=== PATIENT | female | born 1965 | race Caucasian/White ===

== ENCOUNTER 2017-08-10 06:31 | Observation (INO) | payer OTHER, SELFPAY ==
--- NOTE | 2017-07-30 15:29 | EKG12_ITS ---
Test Reason : PRE OP Blood Pressure : / mmHG Vent. Rate : 091 BPM Atrial Rate : 091 BPM P-R Int : 158 ms QRS Dur : 096 ms QT Int : 376 ms P-R-T Axes : 061 -12 007 degrees QTc Int : 462 ms Normal sinus rhythm Low voltage QRS (pre cordial leads) Nonspecific ST and T wave abnormality Confirmed by JT GUERRERO, BILLY ([id number]), photograph editor CHELSI GALVIN ([id number]) on 08/01/2017 1:04:55 PM Referred By: Jonah Carson Confirmed By:BILLY WATERS MD
[2017-07-30 16:14] LABS: Hemoglobin A1c 7.8 % (4.2-6.3)
[2017-07-30 16:47] LABS: Anion Gap 8 (5-15); BUN 11 mg/dL (7-18); BUN/Creat Ratio 11.5 RATIO (10-20); Chloride 103 mmol/L (98-107); Creatinine, Serum 0.96 mg/dL (0.55-1.02); EST Glomerular Filtration Rate 66 mL/min (>60); Est Glom Filt Rate - Afr Amer 79 mL/min (>60); Glucose 153 mg/dL (74-106); Potassium 3.8 mmol/L (3.5-5.1); Sodium Level 137 mmol/L (136-145); Thyroid Stim Hormone (TSH) 0.86 uIU/mL (0.358-3.74)
--- NOTE | 2017-08-08 23:23 | HP.PCM_ITS ---
History and Physical Date of Admission: 08/09/17 HISTORY OF PRESENT ILLNESS 52-year-old woman presents with bilateral macromastia as well as associated painful symptomatology of neck pain, thoracic back pain, bilateral shoulder pain from shoulder grooving from the way of her breasts on her bra strap, and inframammary intertrigo which he uses diaper rash ointment for relief. She had a mammogram in March, which was normal. She does have a family history of breast cancer. She denies any trauma to the breast. Denies any nipple discharge. She has not seen any chiropractor to help with her back discomfort. Medical approval from the insurance company has been obtained. PAST MEDICAL HISTORY Diabetes High BP Vitamin Deficiency Thyroid dx Arthritis Fibroids Hyperlipidemia Gastroesophageal reflux disease Anemia, iron deficiency Increased cholesterol Degenerative disc disease-cervical Degenerative disc disease-thoracic Inframammary intertrigo Bilateral shoulder pain from shoulder grooving from the weight of her breasts on her bra straps Back pain, thoracic region Neck pain Bilateral macromastia PAST SURGICAL HISTORY 2015 Total abdominal hysterectomy 2015 Bilateral salpingo-oophorectomy Hernia repair x2 2 C-sections 1989 [place] teeth Panniculectomy - 2015 D and C FAMILY HISTORY Positive for breast cancer. SOCIAL HISTORY Alcohol Use - no Drug Use - no Patient has never smoked. MEDICATIONS ARMOUR THYROID 90 MG ORAL TABLET (THYROID) One tablet by mouth daily VITAMIN D3 5000 UNIT ORAL CAPSULE (CHOLECALCIFEROL) One tablet by mouth daily LISINOPRIL 20 MG ORAL TABLET (LISINOPRIL) One tablet by mouth daily TRADJENTA 5 MG ORAL TABLET (LINAGLIPTIN) One tablet by mouth daily FERROUS SULFATE 325 (65 Fe) MG ORAL TABLET (FERROUS SULFATE) One tablet by mouth twice daily IBUPROFEN 600 MG ORAL TABLET (IBUPROFEN) One tablet by mouth daily METFORMIN HCL ER 500 MG ORAL TABLET EXTENDED RELEASE 24 HOUR (METFORMIN HCL) 2 tabs twice daily ALLERGIES * TAPE (Critical) REVIEW OF SYSTEMS General-denies fever, fatigue, weight loss. Ear nose and throat-denies nasal congestion. Denies sore throat. Eyes-denies glaucoma. Denies cataracts. Endocrine-denies excessive thirst or urination. Patient has diabetes mellitus. Patient has thyroid disease. Skin-denies suspicious lesions. Has inframammary intertrigo for which she uses diaper rash ointment for relief. Muscular skeletal-patient has joint pain, joint stiffness, weakness of muscles and joints, back pain involving the thoracic area and cervical area and arthritis. Neurologic-denies headaches. Cardiovascular-denies chest pain. Denies fatigue. Denies shortness of breath with exertion. Psychiatric-denies anxiety. Denies depression. Respiratory-denies chronic cough. Denies shortness of breath. Gastrointestinal-denies nausea, vomiting, diarrhea, constipation. Hematologic-denies abnormal bruising. Denies bleeding. Genitourinary-denies urinary frequency. Denies hematuria. PHYSICAL EXAMINATION General-well developed, well nourished, in no acute distress. Patient's bra size is 52 triple D. HEENT-pupils equal round and reactive to light. Extraocular muscles intact. Throat is clear. Neck-supple and no cervical adenopathy. No bony tenderness. There is some paracervical soft tissue tenderness. Breasts-patient has bilateral macromastia. No breast masses palpable. No axillary adenopathy noted. Distance from the midclavicular line in the left nipple is 42 cm from the nipple to the family. Her teens centimeters. The distance from the midclavicular line to the nipple on the right is 43 cm from the nipple to the primary fold is 14 cm. The nipple areolar complex diameter is 9 cm bilaterally. No active inframammary intertrigo noted at this time. Lungs-clear to auscultation. Heart-regular rate and rhythm. Abdomen-soft and nondistended. Extremities-range of motion. No axillary adenopathy. Radial pulses are palpable. Has bilateral shoulders tenderness in the area of shoulder grooving of the weight of her breasts and her bra straps. Back-no bony tenderness noted. There is paravertebral soft tissue tenderness in the upper thoracic area. Neuro-cranial nerves II through XII grossly intact ASSESSMENT 1. Bilateral macromastia. 2. Neck pain. 3. Thoracic back pain. 4. Bilateral shoulder pain from the shoulder grooving from the way to the breast on her bra straps. 5. Inframammary intertrigo. 6. Family history of breast cancer. PLAN Discussed with the patient the procedure of breast reduction mammoplasty. I feel this procedure we would be beneficial in this patient as it would help relieve her painful symptomatology. She had a mammogram in March, which was normal. I would remove approximately 1000 g of breast tissue per side. We will send the tissue to pathology for analysis to rule out carcinoma. Discussed with patient the extent of the scarring for this procedure. The biggest risk for wound healing problems is in the T-zone area especially in someone like her who weighs 300 pounds and her skin is quite thin. She will drains in for a few days depending on the amount of tissue that is removed. Will be on antibiotics until the drains are removed. Surgery will be done under general anesthesia with a surgical observation overnight stay in the hospital.. A letter was sent to her insurance company for medical approval which has been obtained. Patient was informed of the risks and complications of the procedure including alternatives to surgery. These were discussed with her personally. She voices understanding and wishes to proceed. Some of the risks and complications were included in a form from the [employer].
[2017-08-09] VITALS (13 sets, daily range): BP systolic 87–149; BP diastolic 49–90; PULSE 63–104; RESP 16–18; TEMP 36.1–37.1; O2SAT 93–98; BMI 48.1; BMI 50.1
--- NOTE | 2017-08-09 | BR_PTH ---
PATIENT: LIBORIO WANG LOC: MS3 U#:[id number] AGE/SX: 52/F ROOM: [facility] [place] RE08/10/[address]: Dr. Jonah Carson MD : 1965 BED: 1 DIS: 08/10/2017 SPEC #: [id number] RECD: 08/09/17 14:51 STATUS: VISHAL RETed #: [id number] SIVAKUMAR: 08/09/17 00:[address]: Jonah Carson DEPT: SURGICAL PATHOLOGY RECD BY: Yan Hong ENTERED: 08/09/17 14:51 SP TYPE: MAMOPLASTY OTHR DR: Out of [facility] Doctor Tissues: A - Right breast, NOS B - Left breast, NOS Procedures: Surgery Specimen Level IV HEADER OPERATION: Breast reduction mammaplasty PRE-OP DIAGNOSIS: Bilateral macromastia, neck pain, thoracic back pain, bilateral shoulder pain, inframammary intertrigo, family history of breast cancer TISSUE SUBMITTED: A ? Right breast tissue, B ? Left breast tissue MICROSCOPIC DIAGNOSIS A. Right breast tissue, breast reduction mammaplasty: Fatty benign breast tissue (1661 gm), no pathologic diagnosis. B. Left breast tissue, breast reduction mammaplasty: Fatty benign breast tissue (1517 gm), no pathologic diagnosis. OMAR:luis 08/14/17 MICROSCOPIC DESCRIPTION Slides are reviewed. GROSS DESCRIPTION A - Received in fixative is one container labeled with the patient's name and designated right breast tissue. The specimen consists of multiple pieces of yellow fibroadipose tissue with a few of the pieces showing overlying skin weighing in aggregate 1661 gm and measuring in aggregate 30 x 30 x 9 cm. The skin surface is unremarkable. Sections reveal paredes-yellow adipose cut surfaces mixed with a scant fibrous area. No mass lesion is identified. Tutoring Manager sections are submitted in six cassettes. Cassette 1 contains the skin. B - Received in fixative is one container labeled with the patient's name and designated left breast tissue. The specimen consists of multiple pieces of yellow fibroadipose tissue with a few of the pieces showing overlying skin weighing in aggregate 1517 gm and measuring in aggregate 30 x 30 x 8 cm. The skin surface is unremarkable. Sections reveal paredes-yellow adipose cut surfaces mixed with a scant fibrous area. No mass lesion is identified. Tutoring Manager sections are submitted in six cassettes. Cassette 1 contains the skin. Sections will be submitted after overnight fixation. / OMAR:luis 08/12/17 TC:4 [facility]: [id number] x2
[2017-08-09 07:26] LABS: Bedside Glucose 239 mg/dL (70-110)
[2017-08-09] MEDS: Cefazolin 2 GM in 0.9% Normal Saline 100 ML IV (07:56)
[2017-08-09] MEDS: Methylene Blue 1% 100 MG/10 ML VIAL (08:35)
[2017-08-09 11:40] LABS: Bedside Glucose 214 mg/dL (70-110)
--- NOTE | 2017-08-09 13:56 | PCM.IMDPSTOP ---
Immediate Post-Op Note Date of Procedure: 08/09/17 Primary Surgeon/Physician: Jonah Carson guardian ad litem: Lamont Pan. Pre-Operative Diagnosis: 1. Bilateral macromastia. 2. Neck pain. 3. Thoracic back pain. 4. Bilateral shoulder pain from the shoulder grooving from the way to the breast on her bra straps. 5. Inframammary intertrigo. 6. Family history of breast cancer. Post-Operative Diagnosis: Same. Surgery/Procedure Performed:: Bilateral breast reduction mammaplasty. Description of Surgical Findings:: 52-year-old woman presents with bilateral macromastia as well as associated painful symptomatology of neck pain, thoracic back pain, bilateral shoulder pain from shoulder grooving from the way of her breasts on her bra strap, and inframammary intertrigo which he uses diaper rash ointment for relief. She had a mammogram in March, which was normal. She does have a family history of breast cancer. She denies any trauma to the breast. Denies any nipple discharge. She has not seen any chiropractor to help with her back discomfort. Medical approval from the insurance company has been obtained. Today the patient underwent bilateral breast reduction mammaplasty. IV Fluids - 3300 ml. Urine Output - 425 ml. Size of left breast - 1440 grams. Size of right breast - 1612 grams. I used Katya absorbable hemostat, (4 vials, 2 in each breast). Reference Number - [id number]. Lot Number - [id number]. Expiration - February 02, 2022, (2 vials, one vial in each breast). Reference Number - [id number]. Lot Number - [id number]. Expiration - May 05, 2022, (2 vials, one vial in each breast). Estimated Blood Loss: 200 ml. Specimen's removed: 1. Left breast tissue to Pathology. 2. Right breast tissue to Pathology. Drains: Shlomo x2 (one in each breast). Type of Anesthesia:: General - Admit VTE Documentation VTE Present on Admission: No VTE Mechan Device Prophylaxis: SCD's VTE Pharm Prophylaxis ordered?: Yes
--- NOTE | 2017-08-09 14:01 | OP.PN_ITS ---
Immediate Post-Op Note Date of Procedure: 08/09/17 Primary Surgeon/Physician: Jonah Carson in home nanny: Lamont Pan. Pre-Operative Diagnosis: 1. Bilateral macromastia. 2. Neck pain. 3. Thoracic back pain. 4. Bilateral shoulder pain from the shoulder grooving from the way to the breast on her bra straps. 5. Inframammary intertrigo. 6. Family history of breast cancer. Post-Operative Diagnosis: Same. Surgery/Procedure Performed:: Bilateral breast reduction mammaplasty. Description of Surgical Findings:: 52-year-old woman presents with bilateral macromastia as well as associated painful symptomatology of neck pain, thoracic back pain, bilateral shoulder pain from shoulder grooving from the way of her breasts on her bra strap, and inframammary intertrigo which he uses diaper rash ointment for relief. She had a mammogram in March, which was normal. She does have a family history of breast cancer. She denies any trauma to the breast. Denies any nipple discharge. She has not seen any chiropractor to help with her back discomfort. Medical approval from the insurance company has been obtained. Today the patient underwent bilateral breast reduction mammaplasty. IV Fluids - 3300 ml. Urine Output - 425 ml. Size of left breast - 1440 grams. Size of right breast - 1612 grams. I used Katya absorbable hemostat, (4 vials, 2 in each breast). Reference Number - [id number]. Lot Number - [id number]. Expiration - February 02, 2022, (2 vials, one vial in each breast). Reference Number - [id number]. Lot Number - [id number]. Expiration - May 05, 2022, (2 vials, one vial in each breast). Estimated Blood Loss: 200 ml. Specimen's removed: 1. Left breast tissue to Pathology. 2. Right breast tissue to Pathology. Drains: Shlomo x2 (one in each breast). Type of Anesthesia:: General - Admit VTE Documentation VTE Present on Admission: No VTE Mechan Device Prophylaxis: SCD's VTE Pharm Prophylaxis ordered?: Yes
[2017-08-09 14:50] LABS: Bedside Glucose 206 mg/dL (70-110)
--- NOTE | 2017-08-09 15:35 | VDUE_ITS ---
Reason For Study: LUE pain Left Proximal Left jugular vein is spontaneous, widely patent, phasic, with no intraluminal echogenicity noted. Left subclavian vein is spontaneous, widely patent, phasic, with no intraluminal echogenicity noted. Left Arm Left axillary vein is spontaneous, patent, phasic, competent, compressible and demonstrates augmentation. Left brachial vein is compressible. Left cephalic vein is compressible. Left basilic vein is compressible. Left Lower Arm Left radial vein is compressible. Left ulnar vein is compressible. < Interpretation Summary No evidence for acute deep venous thrombosis[left] upper extremity with patent and compressible cephalic and basilic veins. Ordering Physician: Jonah Carson Referring Physician: Jonah Carson Performed By: Roxy Allred RVT
[2017-08-09] MEDS: Lactated Ringers 1,000 ML 60 ML IV (16:52)
[2017-08-09 17:15] LABS: Bedside Glucose 258 mg/dL (70-110)
[2017-08-09] MEDS: 0.9% NaCl Peripheral Flush Adult/Peds IV ×2 (17:44→21:46)
[2017-08-09] MEDS: Ondansetron 4 MG/2 ML Vial IV (17:44)
[2017-08-09] MEDS: HYDROmorphone 1 MG/ML Syringe IV (17:48)
--- NOTE | 2017-08-09 19:01 | PCM.OPRPT ---
Report of Operation Date of Procedure: 08/09/17 Pre-Operative Diagnosis: 1. Bilateral macromastia. 2. Neck pain. 3. Thoracic back pain. 4. Bilateral shoulder pain from the shoulder grooving from the way to the breast on her bra straps. 5. Inframammary intertrigo. 6. Family history of breast cancer. Post-Operative Diagnosis: Same. Surgery/Procedure Performed:: Bilateral breast reduction mammaplasty. Description of Surgical Findings:: 52-year-old woman presents with bilateral macromastia as well as associated painful symptomatology of neck pain, thoracic back pain, bilateral shoulder pain from shoulder grooving from the way of her breasts on her bra strap, and inframammary intertrigo which he uses diaper rash ointment for relief. She had a mammogram in March, which was normal. She does have a family history of breast cancer. She denies any trauma to the breast. Denies any nipple discharge. She has not seen any chiropractor to help with her back discomfort. Medical approval from the insurance company has been obtained. Today the patient underwent bilateral breast reduction mammaplasty. IV Fluids - 3300 ml. Urine Output - 425 ml. Size of left breast - 1440 grams. Size of right breast - 1612 grams. I used Katya absorbable hemostat, (4 vials, 2 in each breast). Reference Number - [id number]. Lot Number - [id number]. Expiration - February 02, 2022, (2 vials, one vial in each breast). Reference Number - [id number]. Lot Number - [id number]. Expiration - May 05, 2022, (2 vials, one vial in each breast). background check coordinator: Lamont Pan. Type of Anesthesia:: General Specimen's removed: 1. Left breast tissue to Pathology. 2. Right breast tissue to Pathology. Drains: Shlomo x2 (one in each breast). Estimated Blood Loss (mL): 200 ml. Fluids Replaced: 3725 ml (IV Fluids 3300 ml, and Urine Output 425 ml). Description of Procedure: The patient was taken to the operating room and in the sitting position, preoperative markings were made. The sternum midline was marked down to the umbilicus. The inframammary folds were marked bilaterally. The midclavicular line was then marked down to the nipple, then from the nipple to the inframammary fold. The inframammary fold was then superimposed on the midclavicular line and I made a point 1 cm below that to be the new position of the nipple-areolar complex. 7 cm lines were then drawn divergent from that point to encompass the nipple-areolar complex. The distance between the divergent lines was 10 cm. The patient was then placed in the supine position and placed under general anesthesia and her breasts were prepped and draped in usual fashion. SCDs were placed for DVT prophylaxis. Perioperative antibiotics were given intravenously. A Mcneil catheter was also placed. I then tattooed the preoperative markings with methylene blue and 25-gauge needle. I also tattooed the 12 o'clock position of the nipple-areolar complex to help with positioning of the nipple-areolar complex when it is brought through the keyhole incision at the end of the procedure to minimize kinking and twisting of the central breast mound pedicle. I then lata straight lines down from the lines drawn divergent around the nipple-areolar complex down to the inframammary fold. The width of the pedicle is 10 cm. I then used a 42 mm circular template for a new size of the nipple-areolar complex. The central markings were infiltrated with Xylocaine and epinephrine. The central skin was then deepithelialized. I started on the right side first and then went to the left side. I then mobilized medial and lateral breast flaps at the level of Kemal's fascia down to within a centimeter of the chest wall. This was met in the midline of the breast with dissection at the level of Kemal's fascia down to within a centimeter of the chest wall. Once the central breast mound pedicle was from the skin envelope, the reduction was then begun. Most of the tissue was removed from the superior aspect of the breast and the lateral aspect of the breast. I then sutured the leading edge of the medial and lateral breast flaps to the midline of the inframammary fold. The vertical incision was approximated using surgical clips. The excess tissue from the medial and lateral breast flaps were excised and the horizontal incision was approximated using surgical clips. The patient was then placed in a sitting position. Using a vertical limb length of 5 cm, I lata the new position of the new nipple-areolar complexes on both breasts. They were in good position on the central aspect of the breast mound. Good symmetry was noted between the left breast and the right breast. The patient was then placed back in the supine position and the surgical clips were removed. The breast wounds were then irrigated with saline. Hemostasis was obtained using electrocautery. The tissue removed from the left breast was 1440 grams. The tissue removed from the right breast was 1612 grams. After hemostasis was obtained using electrocautery, I then sprayed Katya absorbable hemostat into both breast wounds. I used 2 vials for each side. I then placed a size 15 Shlomo drain into each breast wound to be brought through the lateral aspect of horizontal incision. I then closed the breast wounds by first approximating the leading edge of the medial and lateral breast flaps to the midline of the inframammary fold with 2-0 Vicryl suture. The deep dermis and subcutaneous tissue of the vertical incision and the horizontal incisions were approximated using 3-0 Monocryl interrupted sutures. The horizontal incision was then approximated using 3-0 V-Loc unidirectional barbed running subcuticular suture. I also placed a few 4-0 Prolene vertical mattress interrupted sutures at the level of the Tzone. The vertical incision was then closed on the skin with 4-0 Prolene suture. With a vertical limb length of 5 cm, I lata a circular incision where the new nipple-areolar complex would be brought through the keyhole incision. Incisions were made and the nipple areolar complex was brought through the keyhole incision. The 12 o'clock position of the nipple-areolar complex was lined up with the 12 o'clock position of the breast skin. The nipple-areolar complex was secured to the breast skin using 3-0 Monocryl interrupted sutures for deep dermis and subcutaneous tissue. The skin was approximated using 4-0 Prolene simple interrupted sutures. This was then covered with Histoacryl skin tissue adhesive. I sutured the drain to the skin using 3-0 nylon suture. At the end of procedure, the breasts were soft with no evidence of vascular compromise. No evidence of hematomas were noted. The nipples were viable. I then dressed the breasts with a Kerlix gauze and a surgical bra. The patient tolerated the procedure well and will be sent to the recovery room in satisfactory condition. She will be admitted for surgical observation overnight stay. She will go home tomorrow once she is tolerating oral pain medication. I will remove the drains in the office. She will keep her head elevated during the initial postoperative period. She will be maintained on a lifting restriction and keep her head elevated during the initial postoperative period. Postoperatively, she may get a compression sports bra as well. She will have the Mcneil removed in the morning. She will be sent home on antibiotics and pain medicine for a few days. Also the tissue that was removed today from the breast reduction surgery will be sent to pathology for analysis to rule out carcinoma. Grafts/Implants Used: None. - Complications None. - Admit VTE Documentation VTE Present on Admission: No VTE Mechan Device Prophylaxis: SCD's VTE Pharm Prophylaxis ordered?: Yes Code Visit Surgery Charges CPT - 62957 ICD-10 - N62, M54.2, M54.6, M25.519, L30.4, Z80.3 [id number] N62, M54.2, M54.6, M25.519, L30.4, Z80.3
[2017-08-09] MEDS: proMETHazine 25 MG Tablet PO (20:28)
[2017-08-09] MEDS: proMETHazine 25 MG/ML Syringe IV (21:46)
[2017-08-09] MEDS: Cefazolin 1 GM/50 ML BAG IV (21:46)
[2017-08-09 22:56] LABS: Bedside Glucose 284 mg/dL (70-110)
[2017-08-10] MEDS: HYDROmorphone 1 MG/ML Syringe IV (01:47)
[2017-08-10] MEDS: Ondansetron 4 MG/2 ML Vial IV (01:48)
[2017-08-10] MEDS: 0.9% NaCl Peripheral Flush Adult/Peds IV ×2 (01:48→02:00)
[2017-08-10 01:55] VITALS: BP 107/67; PULSE 103; RESP 18; TEMP 37.2; O2SAT 99
[2017-08-10] MEDS: Enoxaparin 40 MG/0.4 ML Syringe SC (06:18)
[2017-08-10] MEDS: Cefazolin 1 GM/50 ML BAG IV (06:18)
[2017-08-10] MEDS: Thyroid 60 MG Tablet 90 MG PO (06:19)
[2017-08-10 08:02] VITALS: BP 135/78; PULSE 121; RESP 18; TEMP 36.9; O2SAT 94
[2017-08-10 08:04] LABS: Hematocrit 38.7 % (37-47); Hemoglobin 12.7 g/dl (12.0-15.0); Mean Corp Hgb Conc 32.8 g/gl (32-36); Mean Corpuscular Hgb 29.7 pg (27.0-32.0); Mean Corpuscular Volume 90.6 fL (81-99); Mean Platelet Vol. 9.4 fl (6.2-12.0); Platelet Count 263 K/mm3 (150-450); RBC Distribution Width CV 14.3 % (11.6-14.6); RBC Distribution Width SD 47.2 fl (35.1-43.9); Red Blood Count 4.27 M/mm3 (4.2-5.4); White Blood Count 14.5 K/mm3 (4.4-11.0)
[2017-08-10] MEDS: oxyCODONE 5 MG Tablet 10 MG PO ×2 (08:04→12:08)
[2017-08-10 08:06] LABS: Scan Indicated on CBC? Y/N NO
[2017-08-10] MEDS: Docusate Sodium 100 MG Capsule PO (08:07)
[2017-08-10] MEDS: Pantoprazole Sodium 40 MG Tablet PO (08:07)
[2017-08-10] MEDS: Empagliflozin 10 MG Tablet PO (08:07)
[2017-08-10] MEDS: Lisinopril 20 MG Tablet PO (08:08)
[2017-08-10] MEDS: Lactated Ringers 1,000 ML 60 ML IV (08:24)
[2017-08-10 08:30] LABS: Anion Gap 7 (5-15); BUN 11 mg/dL (7-18); BUN/Creat Ratio 15.4 RATIO (10-20); Calcium,Total 8.4 mg/dL (8.5-10.1); Chloride 100 mmol/L (98-107); Creatinine, Serum 0.72 mg/dL (0.55-1.02); EST Glomerular Filtration Rate 92 mL/min (>60); Est Glom Filt Rate - Afr Amer 111 mL/min (>60); Estimated Creatinine Clearance 84.11 ml/min; Glucose 198 mg/dL (74-106); Potassium 4.1 mmol/L (3.5-5.1); Prealbumin 20.5 mg/dL (20.0-40.0); Sodium Level 135 mmol/L (136-145)
[2017-08-10 08:46] LABS: Bedside Glucose 231 mg/dL (70-110)
--- NOTE | 2017-08-10 09:01 | OP.PCM_ITS ---
Report of Operation Date of Procedure: 08/09/17 Pre-Operative Diagnosis: 1. Bilateral macromastia. 2. Neck pain. 3. Thoracic back pain. 4. Bilateral shoulder pain from the shoulder grooving from the way to the breast on her bra straps. 5. Inframammary intertrigo. 6. Family history of breast cancer. Post-Operative Diagnosis: Same. Surgery/Procedure Performed:: Bilateral breast reduction mammaplasty. Description of Surgical Findings:: 52-year-old woman presents with bilateral macromastia as well as associated painful symptomatology of neck pain, thoracic back pain, bilateral shoulder pain from shoulder grooving from the way of her breasts on her bra strap, and inframammary intertrigo which he uses diaper rash ointment for relief. She had a mammogram in March, which was normal. She does have a family history of breast cancer. She denies any trauma to the breast. Denies any nipple discharge. She has not seen any chiropractor to help with her back discomfort. Medical approval from the insurance company has been obtained. Today the patient underwent bilateral breast reduction mammaplasty. IV Fluids - 3300 ml. Urine Output - 425 ml. Size of left breast - 1440 grams. Size of right breast - 1612 grams. I used Katya absorbable hemostat, (4 vials, 2 in each breast). Reference Number - [id number]. Lot Number - [id number]. Expiration - February 02, 2022, (2 vials, one vial in each breast). Reference Number - [id number]. Lot Number - [id number]. Expiration - May 05, 2022, (2 vials, one vial in each breast). pricer bagger: Lamont Pan. Type of Anesthesia:: General Specimen's removed: 1. Left breast tissue to Pathology. 2. Right breast tissue to Pathology. Drains: Shlomo x2 (one in each breast). Estimated Blood Loss (mL): 200 ml. Fluids Replaced: 3725 ml (IV Fluids 3300 ml, and Urine Output 425 ml). Description of Procedure: The patient was taken to the operating room and in the sitting position, preoperative markings were made. The sternum midline was marked down to the umbilicus. The inframammary folds were marked bilaterally. The midclavicular line was then marked down to the nipple, then from the nipple to the inframammary fold. The inframammary fold was then superimposed on the midclavicular line and I made a point 1 cm below that to be the new position of the nipple-areolar complex. 7 cm lines were then drawn divergent from that point to encompass the nipple-areolar complex. The distance between the divergent lines was 10 cm. The patient was then placed in the supine position and placed under general anesthesia and her breasts were prepped and draped in usual fashion. SCDs were placed for DVT prophylaxis. Perioperative antibiotics were given intravenously. A Mcneil catheter was also placed. I then tattooed the preoperative markings with methylene blue and 25-gauge needle. I also tattooed the 12 o'clock position of the nipple-areolar complex to help with positioning of the nipple-areolar complex when it is brought through the keyhole incision at the end of the procedure to minimize kinking and twisting of the central breast mound pedicle. I then lata straight lines down from the lines drawn divergent around the nipple-areolar complex down to the inframammary fold. The width of the pedicle is 10 cm. I then used a 42 mm circular template for a new size of the nipple-areolar complex. The central markings were infiltrated with Xylocaine and epinephrine. The central skin was then deepithelialized. I started on the right side first and then went to the left side. I then mobilized medial and lateral breast flaps at the level of Kemal's fascia down to within a centimeter of the chest wall. This was met in the midline of the breast with dissection at the level of Kemal's fascia down to within a centimeter of the chest wall. Once the central breast mound pedicle was from the skin envelope, the reduction was then begun. Most of the tissue was removed from the superior aspect of the breast and the lateral aspect of the breast. I then sutured the leading edge of the medial and lateral breast flaps to the midline of the inframammary fold. The vertical incision was approximated using surgical clips. The excess tissue from the medial and lateral breast flaps were excised and the horizontal incision was approximated using surgical clips. The patient was then placed in a sitting position. Using a vertical limb length of 5 cm, I lata the new position of the new nipple-areolar complexes on both breasts. They were in good position on the central aspect of the breast mound. Good symmetry was noted between the left breast and the right breast. The patient was then placed back in the supine position and the surgical clips were removed. The breast wounds were then irrigated with saline. Hemostasis was obtained using electrocautery. The tissue removed from the left breast was 1440 grams. The tissue removed from the right breast was 1612 grams. After hemostasis was obtained using electrocautery, I then sprayed Katya absorbable hemostat into both breast wounds. I used 2 vials for each side. I then placed a size 15 Shlomo drain into each breast wound to be brought through the lateral aspect of horizontal incision. I then closed the breast wounds by first approximating the leading edge of the medial and lateral breast flaps to the midline of the inframammary fold with 2-0 Vicryl suture. The deep dermis and subcutaneous tissue of the vertical incision and the horizontal incisions were approximated using 3-0 Monocryl interrupted sutures. The horizontal incision was then approximated using 3-0 V-Loc unidirectional barbed running subcuticular suture. I also placed a few 4- 0 Prolene vertical mattress interrupted sutures at the level of the Tzone. The vertical incision was then closed on the skin with 4-0 Prolene suture. With a vertical limb length of 5 cm, I lata a circular incision where the new nipple-areolar complex would be brought through the keyhole incision. Incisions were made and the nipple areolar complex was brought through the keyhole incision. The 12 o'clock position of the nipple-areolar complex was lined up with the 12 o' clock position of the breast skin. The nipple-areolar complex was secured to the breast skin using 3-0 Monocryl interrupted sutures for deep dermis and subcutaneous tissue. The skin was approximated using 4-0 Prolene simple interrupted sutures. This was then covered with Histoacryl skin tissue adhesive. I sutured the drain to the skin using 3-0 nylon suture. At the end of procedure, the breasts were soft with no evidence of vascular compromise. No evidence of hematomas were noted. The nipples were viable. I then dressed the breasts with a Kerlix gauze and a surgical bra. The patient tolerated the procedure well and will be sent to the recovery room in satisfactory condition. She will be admitted for surgical observation overnight stay. She will go home tomorrow once she is tolerating oral pain medication. I will remove the drains in the office. She will keep her head elevated during the initial postoperative period. She will be maintained on a lifting restriction and keep her head elevated during the initial postoperative period. Postoperatively, she may get a compression sports bra as well. She will have the Mcneil removed in the morning. She will be sent home on antibiotics and pain medicine for a few days. Also the tissue that was removed today from the breast reduction surgery will be sent to pathology for analysis to rule out carcinoma. Grafts/Implants Used: None. - Complications None. - Admit VTE Documentation VTE Present on Admission: No VTE Mechan Device Prophylaxis: SCD's VTE Pharm Prophylaxis ordered?: Yes Code Visit Surgery Charges CPT - 74122 ICD-10 - N62, M54.2, M54.6, M25.519, L30.4, Z80.3 [id number] N62, M54.2, M54.6, M25.519, L30.4, Z80.3
--- NOTE | 2017-08-10 09:54 | NURSING ---
Pt crying in room, states pain is 9/10- was given oxyir for pain earlier, brought pt in some dilaudid pt refused to take stating she just wants to get out of bed and get moving x3 nursing/pooling operator in room will assist pt in to chair
[2017-08-10 10:59] VITALS: O2SAT 96
--- NOTE | 2017-08-10 11:34 | PCM.PN.SRG ---
Subjective: Postop #1 Patient is resting comfortably. She is tolerating po analgesia. - Physical Exam General: Alert, Oriented x3 HEENT: PERRLA, EOMI Neck: Supple Lungs: Clear to auscultation Cardiovascular: Regular rate, Regular Rhythm Abdomen: Soft, Non-Distended Skin: Incision - Breast incisions are dry and intact. Mild skin bruising seen. No vascular compromise noted on the breast skin flaps. Breasts are soft. No evidence of hematoma. Nipples are viable. Lymphatic: - - no axillary adenopathy. Neurological: Cranial nerves II-XII grossly intact Psych/Mental Status: Normal Affect, Appropriate Vital Signs Temp Pulse Resp BP Pulse Ox 98.4 F 121 H 18 135/78 H 96 08/10/17 08:02 08/10/17 08:02 08/10/17 08:02 08/10/17 08:02 08/10/17 10:59 Oxygen Flow Rate (L/min) 3 Oxygen Delivery Method Room Air Weight: 301 lb Body Mass Index (BMI) 50.1 Finger Stick Blood Glucose 206 Intake and Output for Last 24 Hours 08/08/17 08/09/17 08/10/17 23:59 23:59 23:59 Intake Total 3822 / 3822 1287 / 1287 Output Total 712 / 712 1310 / 1310 Balance 3110 / 3110 -23 / -23 Drainage 12 ml yesterday, 160 ml today. Laboratory Tests Past 24 Hrs 08/10/17 08/10/17 07:40 07:40 WBC 14.5 H RBC 4.27 Hgb 12.7 Hct 38.7 MCV 90.6 MCH 29.7 MCHC 32.8 RDW 14.3 RDW Differential 47.2 H Plt Count 263 MPV 9.4 Sodium 135 L Potassium 4.1 Chloride 100 Carbon Dioxide 28.0 Anion Gap 7 BUN 11 Creatinine 0.72 Estim Creat Clear Calc 84.11 Est GFR (MDRD) Af Amer 111 Est GFR (MDRD) Non-Af 92 BUN/Creatinine Ratio 15.4 Glucose 198 H Calcium 8.4 L Prealbumin 20.5 POC Glucose 08/10/17 08/09/17 08/09/17 08:00 22:52 16:50 POC Glucose 231 H 284 H 258 H 08/09/17 08/09/17 14:26 11:35 POC Glucose 206 H 214 H Medical Necessity - Tobacco Use Smoking Status: Never smoker Tobacco Use: Secondhand Assessment/Plan 1. Bilateral macromastia. 2. Neck pain. 3. Thoracic back pain. 4. Bilateral shoulder pain from the shoulder grooving from the way to the breast on her bra straps. 5. Inframammary intertrigo. 6. Family history of breast cancer. 7. s/p bilateral breast reduction mammaplasty. Incisions are dry and intact. Breasts are soft. No evidence of hematoma. Nipples are viable. She is tolerating po analgesia. Discharge home today. Will remove the drains in the office. Mcneil catheter removed today. She was able to void without difficulty. Prealbumin was 20.5. Encourage nutritional supplementation with protein to help the healing process. Wrote script for Cefadroxil for 7 days until the drains are removed. Wrote scripts for Percocet for pain (50 tabs) and for Valium for spasm, twice a day (10 tabs). Wrote scripts for Phenergan for nausea (30 tabs) and a refill and for Colace for constipation (60 tabs). Keep head elevated. Continue surgical bra and lifting restriction. Followup one week.
--- NOTE | 2017-08-10 11:41 | PCM.DC ---
You will use the following diet at home:: Calorie/Carbohydrate Controlled (specify 1200, 1400, etc) Discharge Activity: May not drive while taking narcotic pain medications., - - keep head elevated. no heavy lifting. May shower in (days): 7 - may shower after the drains are removed in the office. May resume sexual activity in: 10-14 days Ice area for (Minutes): 5 - as needed for swelling. Weight Bearing Status: Weight bearing as tolerated Lifting Restrictions: 20 lbs. Keep extremity elevated above heart level: - - elevate head. Call your doctor if your incision/area has: Continuous Slow Oozing, Sudden Increased Bleeding, Increased Pain/ Swelling, Increased Redness, Foul Smelling Discharge, Swelling at the incision site, - - nipples turning black. Call your doctor if you observe: Fever of 101 or Higher, Coldness, Increased Pain, Shortness of breath, Chest pain, Calf discomfort, Uncontrolled pain Suture Line Care: - - dry dressings daily. Change Dressing in (Days):: 1 - dry dressings daily. Cleanse incision/area with: - - may get the incisions wet in the shower after the drains are removed in the office. Drain: Suction - jori drains x2 to bulb suction. empty and record output daily. Allergies/Adverse Reactions: Allergies adhesive tape Adverse Reaction (Verified 07/30/17 10:22) SKIN BREAKDOWN Medications to take at Discharge canagliflozin 100 mg tablet 100 mg PO QAM 07/29/17 cholecalciferol (vitamin D3) 5,000 unit capsule 5,000 unit PO QDAY 07/29/17 ferrous sulfate 325 mg (65 mg iron) tablet 325 mg PO DAILY tab 07/29/17 lisinopril 20 mg tablet 20 mg PO QDAY 07/29/17 omeprazole 40 mg-sodium bicarbonate 1.1 gram capsule 1 cap PO QDAY 07/29/17 thyroid (pork) 90 mg tablet 90 mg PO QDAY 07/29/17 Cefadroxil [Duricef] 500 mg PO BID #14 cap 08/10/17 Diazepam [Valium] 5 mg PO BID PRN #10 tab 08/10/17 Docusate Sodium [Colace] 100 mg PO BID #60 cap 08/10/17 Ferrous Sulfate 325 mg PO DAILY@1200 tablet 08/10/17 Metformin HCl [Glucophage] 500 mg PO BIDCM tablet 08/10/17 Oxycodone HCl/Acetaminophen [Percocet 5/325] 1 - 2 tab PO 4X/DAY PRN PRN 7 Days #50 tab 08/10/17 proMETHazine tablet [Phenergan tablet] 25 mg PO 4X/DAY PRN PRN #30 tab 08/10/17 The following prescriptions were given: Oxycodone HCl/Acetaminophen [Percocet 5/325] 1 - 2 tab PO 4X/DAY PRN PRN 7 Days #50 tab PRN Reason: Pain proMETHazine tablet [Phenergan tablet] 25 mg PO 4X/DAY PRN PRN #30 tab PRN Reason: NAUSEA/VOMITING Cefadroxil [Duricef] 500 mg PO BID #14 cap Diazepam [Valium] 5 mg PO BID PRN #10 tab PRN Reason: Spasms Docusate Sodium [Colace] 100 mg PO BID #60 cap Primary Care Physician: [facility] Doctor,Out of [Primary Care Provider] - Please Follow Up With: Jonah Carson MD - call [phone] if any questions. When: one week. Proposed Discharge Date: 08/10/17
[2017-08-10] MEDS: Ferrous Sulfate 325 MG Tablet PO (12:07)
[2017-08-10 12:26] LABS: Bedside Glucose 217 mg/dL (70-110)
== END 2017-08-10 13:17 | disposition home or self-care (01) ==
LOC: MS3 08-12 14:19 → SDC 08-12 14:19
PROVIDERS: Admitting Provider Surgery; Visit Provider Surgery
PROC: 0H0U0ZZ Alteration of Left Breast, Open Approach (ICD-10-PCS; CPT 19318; principal; 2017-08-09 07:45)
DX: N62 Hypertrophy of breast (principal); M25.512 Pain in left shoulder; M25.511 Pain in right shoulder; L30.4 Erythema intertrigo; Z80.3 Family history of malignant neoplasm of breast; M50.30 Other cervical disc degeneration, unspecified cervical region; M51.34 Other intervertebral disc degeneration, thoracic region; M19.90 Unspecified osteoarthritis, unspecified site; E78.5 Hyperlipidemia, unspecified; K21.9 Gastro-esophageal reflux disease without esophagitis; D50.9 Iron deficiency anemia, unspecified; E55.9 Vitamin D deficiency, unspecified; I10 Essential (primary) hypertension; E11.9 Type 2 diabetes mellitus without complications; E07.9 Disorder of thyroid, unspecified; Z79.899 Other long term (current) drug therapy; M79.602 Pain in left arm
CPT/HCPCS: 19318; 36415; 80048; 82962; 83036; 84134; 84443; 85027; 88305; 93971; 96365; 96366; 96372; 96375; 96376; 99218; J7120; A4216; G0378; G0379; J2405

== ENCOUNTER → 2017-08-22 18:40 | Outpatient (CLI) | payer OTHER, SELFPAY | PROVIDERS: Visit Provider Surgery | DX: T81.89XA Other complications of procedures, not elsewhere classified, initial encounter (principal); N62 Hypertrophy of breast | CPT/HCPCS: 87070; 87075; 87077; 87186; 87205 ==

== ENCOUNTER 2017-08-30 17:44 | Inpatient (IN) | payer OTHER, SELFPAY ==
[2017-08-30 17:45] VITALS: BP 127/81; PULSE 103; RESP 16; TEMP 36.9; O2SAT 98; BMI 46.0
[2017-08-30 19:54] LABS: Hematocrit 39.5 % (37-47); Hemoglobin 12.6 g/dl (12.0-15.0); Lymphocyte % 35.2 % (19-41); Mean Corp Hgb Conc 31.9 g/gl (32-36); Mean Corpuscular Hgb 27.8 pg (27.0-32.0); Mean Corpuscular Volume 87.2 fL (81-99); Mean Platelet Vol. 8.4 fl (6.2-12.0); Neutrophil % 54.8 % (47-70); Platelet Count 383 K/mm3 (150-450); RBC Distribution Width CV 14.2 % (11.6-14.6); Red Blood Count 4.53 M/mm3 (4.2-5.4); White Blood Count 9.3 K/mm3 (4.4-11.0)
[2017-08-30 19:55] LABS: Absolute Lymphocyte Count 3.26 X10^3/ul (0.83-4.51); Absolute Neutrophil Count 5.1 X10^3/uL (2.0-7.7); Basophil# 0.03 X10^3/uL; Basophil% 0.3 % (0-1); Eosinophil# 0.13 X10^3/uL; Eosinophils% 1.4 % (0-5); Lymphocyte # 3.26 X10^3/ul (4.0); Monocyte# 0.75 X10^3/uL; Monocyte% 8.1 % (0-10); Neutrophil # 5.08 X10^3/uL (2.7-7.7)
[2017-08-30 20:01] LABS: POSITIVE COUNT NO; POSITIVE DIFFERENTIAL NO; POSITIVE MORPHOLOGY NO
[2017-08-30 20:04] VITALS: PULSE 101; RESP 32; O2SAT 98
[2017-08-30 20:05] LABS: Anion Gap 7 (5-15); BUN 9 mg/dL (7-18); BUN/Creat Ratio 12.4 RATIO (10-20); Calcium,Total 9.3 mg/dL (8.5-10.1); Chloride 102 mmol/L (98-107); Creatinine, Serum 0.73 mg/dL (0.55-1.02); EST Glomerular Filtration Rate 90 mL/min (>60); Est Glom Filt Rate - Afr Amer 109 mL/min (>60); Estimated Creatinine Clearance 82.96 ml/min; Glucose 120 mg/dL (74-106); Potassium 4.1 mmol/L (3.5-5.1); Sodium Level 137 mmol/L (136-145)
[2017-08-30] MEDS: Clindamycin 600 MG/50 ML BAG 100 MG IV (20:25)
[2017-08-30 22:21] VITALS: PULSE 104; RESP 22; O2SAT 95
--- NOTE | 2017-08-30 23:07 | NURSING ---
WOUND CLEANSED BY DOCTOR SABILLON.
--- NOTE | 2017-08-30 23:15 | ED.DCSUM_ITS ---
- ER Visit Summary Date of Service: 08/30/17 Chief Complaint: Postop wound drainage History of Present Illness: The patient is a 52 F who had breast reduction surgery August [address] Carson. Patient developed wound breakdown with some mild drainage last week. Wound culture was obtained and patient was started on Levaquin. Today would be day #9 of antibiotics. Patient states the right breast wound seems to be improving but the left breast wound has continued to worsen. Today she had continued drainage and then some blood with the discharge. It also had a foul odor to it today. Patient does report having sweats but has not had fever or chills. Physical Examination: Vital signs are unremarkable. Patient's lying in bed no acute distress. She appears nontoxic. Head neck examination is unremarkable. Heart is regular rate and rhythm. Lung sounds are clear. Abdomen is soft nontender. Skin examination reveals the area beneath the right breast to have mild excoriation with some dried drainage. The area beneath the left breast shows moderate excoriation extending approximately 15 cm. There is an open wound approximately 5 cm in length consistent with wound dehiscence. There is thick white discharge noted. Test Results: CBC and chemistry studies are unremarkable. Aerobic and anaerobic cultures were sent from the wounds. Emergency Department Course and Treatment: Patient was treated dose of clindamycin and vancomycin. Wounds were cleansed and wet-to-dry dressings were placed under the left breast. I was advised that Dr. Carson is out of town and not available by phone or by page. Per the track hoe operator he did not sign his patient out to anyone has no one covering his patients. I spoke with the hospitalist and they will not admit the patient for wound care unless we have some surgical specialty willing to see the patient. I spoke with Dr. Mcrae and he will be glad to see the patient in consult to follow along on the wounds. Hospitalist was contacted for admission. Treatment Plan: [] Disposition: Admit Impression: Postop wound infection This note was generated with [employer] dictation software. It may contain incorrect words, spelling, and punctuation that were not noted in review of the chart prior to signing ED Disposition - Plan for ED Patient: Disposition: Acute Care [facility] Chief Complaint: Wound
--- NOTE | 2017-08-30 23:30 | HP.PCM_ITS ---
Problem List (1) Cellulitis Status: Acute (2) Nonhealing surgical wound Status: Acute Comment: left breast at Tzone (3) Hypertrophy of breast Status: Chronic History of Present Illness Date of Admission: 08/30/17 Chief Complaint: Cellulitis The patient is a 52 year old female admitted for cellulitis of left breast. She recently had a breast reduction and was complicated by poor wound healing. She had mild drainage and was started on levaquin. However on the 8th on levaquin, she noted blood discharge from the left breast. She also noted worsening redness and erythema on her left breast. Nothing appeared to make the redness worse or better. It was not associated with any other symptoms. Past Medical History Past Medical History (Chronic Problems): Chronic Problems Hypertrophy of breast (Chronic) Allergies adhesive tape Adverse Reaction (Verified 08/22/17 16:11) SKIN BREAKDOWN Home Medications: Ambulatory Orders Medication Instructions Recorded canagliflozin 100 mg tablet 100 mg PO QAM 07/29/17 cholecalciferol (vitamin D3) 5,000 5,000 unit PO QDAY 07/29/17 unit capsule ferrous sulfate 325 mg (65 mg 325 mg PO QHS tab 07/29/17 iron) tablet lisinopril 20 mg tablet 20 mg PO QDAY 07/29/17 omeprazole 40 mg-sodium 1 cap PO QDAY 07/29/17 bicarbonate 1.1 gram capsule thyroid (pork) 90 mg tablet 90 mg PO 0600 07/29/17 Diazepam [Valium] 5 mg PO BID PRN #10 tab 08/10/17 nystatin 100,000 unit/gram topical 1 applic TOPICAL BID #60 g 08/22/17 powder levofloxacin 500 mg tablet 500 mg PO QDAY #14 tab 08/25/17 Docusate Sodium [Colace] 100 mg PO BID 08/30/17 Metformin HCl [Glucophage] 1,000 mg PO BIDCM 08/30/17 Smoking Status: Never smoker Alcohol: None Drugs: None - *Family History Maternal History Items: No pertinent history Review of Systems Constitutional: Denies: Chills, Fever, Weight Change HEENT: Denies: Head Aches, Sinus Congestion, Sinus Drainage Cardiovascular: Denies: Chest Pain, Palpitations Respiratory: Denies: Cough, Shortness of breath at rest, Sputum production Gastrointestinal: Denies: Abdominal Pain, Nausea, Vomiting Genitourinary: Denies: Dysuria Musculoskeletal: Denies: Joint Pain, Joint Tenderness Skin: Denies: Rash, Wounds Neurological: Denies: Numbness, Tingling, Focal weakness Psychiatric: Denies: Anxiety, Depression, Homicidal Ideations, Suicidal Ideations Hematologic/ Lymphatic: Denies: Easy Bruising, Easy Bleeding VTE Information - Inpt Only VTE Present on Admission: No VTE Mechan Device Prophylaxis: SCD's VTE Pharm Prophylaxis ordered?: Yes Patient Problems: Active and Suspected Problems Cellulitis (Acute) - Physical Exam General: Alert, Oriented x3, Cooperative HEENT: Atraumatic, PERRLA, EOMI, Normocephalic Neck: Supple, No JVD, Negative Carotid Bruits Lungs: Clear to auscultation, Normal air movement Cardiovascular: Regular rate, No murmurs Abdomen: Bowel Sounds Present, Soft, Non Tender Extremities: No edema, Capillary Refill Less than 3 Seconds Skin: - - Cellulitis of left breast. Dressing d/c/i Musculoskeletal: No Tenderness to Palpation of Joints or Extremities Neurological: Cranial nerves II-XII grossly intact Psych/Mental Status: Normal Affect, Appropriate Vital Signs Temp Pulse Resp BP Pulse Ox 98.4 F 104 H 22 H 127/81 H 95 08/30/17 17:45 08/30/17 22:21 08/30/17 22:21 08/30/17 17:45 08/30/17 22:21 Oxygen Delivery Method Room Air Weight: 125.645 kg Body Mass Index (BMI) 46.0 Finger Stick Blood Glucose 206 Laboratory Tests Past 24 Hrs 08/30/17 08/30/17 19:45 19:45 WBC 9.3 RBC 4.53 Hgb 12.6 Hct 39.5 MCV 87.2 MCH 27.8 MCHC 31.9 L RDW 14.2 RDW Differential 45.0 H Plt Count 383 MPV 8.4 Immature Gran % (Auto) 0.200 Neut % (Auto) 54.8 Lymph % (Auto) 35.2 Blair % (Auto) 8.1 Eos % (Auto) 1.4 Baso % (Auto) 0.3 Absolute Neuts (auto) 5.1 Absolute Lymphs (auto) 3.26 Total Counted Not Reportable Sodium 137 Potassium 4.1 Chloride 102 Carbon Dioxide 28.0 Anion Gap 7 BUN 9 Creatinine 0.73 Estim Creat Clear Calc 82.96 Est GFR (MDRD) Af Amer 109 Est GFR (MDRD) Non-Af 90 BUN/Creatinine Ratio 12.4 Glucose 120 H Calcium 9.3 Assessment/Plan Active and Suspected Problems Cellulitis (Acute) 52 year old female admitted for cellulitis of left breast. 1) Cellulitis of left breast: Postop wound infection of left breast reduction noted. Will start zosyn and vancomycin. Awaiting cultures. Narrow antibiotic spectrum when cultures result. Surgery consulted. 2) HTN: Resume home meds. Monitor. 3) Prophylaxis: Lovenox
[2017-08-31 00:01] VITALS: BP 127/82; PULSE 76; RESP 17; O2SAT 95
[2017-08-31 00:07] VITALS: BMI 45.9
[2017-08-31 00:11] VITALS: BP 127/89; PULSE 87; RESP 17; O2SAT 97
[2017-08-31] MEDS: 0.9% Normal Saline 1,000 ML 100 ML IV (01:12)
[2017-08-31 01:15] VITALS: BP 121/54; PULSE 98; RESP 20; TEMP 36.7; O2SAT 97
[2017-08-31 05:47] LABS: M R Staph aureus DNA By PCR Negative (Negative); Probe Check PASS; Specimen Processing Control PASS; Staph aureus DNA By PCR NEGATIVE (Negative)
[2017-08-31] MEDS: Piperacil/Tazobactam 3.375 GM/50 ML ML IV ×3 (06:27→22:27)
[2017-08-31] MEDS: Thyroid 60 MG Tablet 90 MG PO (06:27)
[2017-08-31 06:40] LABS: Absolute Lymphocyte Count 2.25 X10^3/ul (0.83-4.51); Absolute Neutrophil Count 3.4 X10^3/uL (2.0-7.7); Basophil# 0.02 X10^3/uL; Basophil% 0.3 % (0-1); Eosinophil# 0.15 X10^3/uL; Eosinophils% 2.3 % (0-5); Hematocrit 36.7 % (37-47); Hemoglobin 11.8 g/dl (12.0-15.0); Lymphocyte # 2.25 X10^3/ul (4.0); Mean Corp Hgb Conc 32.2 g/gl (32-36); Mean Corpuscular Hgb 28.1 pg (27.0-32.0); Mean Corpuscular Volume 87.4 fL (81-99); Mean Platelet Vol. 8.7 fl (6.2-12.0); Monocyte# 0.61 X10^3/uL; Monocyte% 9.5 % (0-10); Neutrophil # 3.39 X10^3/uL (2.7-7.7); Neutrophil % 52.7 % (47-70); Platelet Count 393 K/mm3 (150-450); RBC Distribution Width CV 14.3 % (11.6-14.6); RBC Distribution Width SD 45.3 fl (35.1-43.9); White Blood Count 6.4 K/mm3 (4.4-11.0)
[2017-08-31 06:49] LABS: POSITIVE COUNT NO; POSITIVE DIFFERENTIAL NO
[2017-08-31 06:50] LABS: POSITIVE MORPHOLOGY NO
[2017-08-31 07:05] LABS: Anion Gap 8 (5-15); BUN 8 mg/dL (7-18); BUN/Creat Ratio 14.4 RATIO (10-20); Calcium,Total 8.6 mg/dL (8.5-10.1); Chloride 103 mmol/L (98-107); Creatinine, Serum 0.55 mg/dL (0.55-1.02); EST Glomerular Filtration Rate 123 mL/min (>60); Est Glom Filt Rate - Afr Amer 149 mL/min (>60); Estimated Creatinine Clearance 110.11 ml/min; Glucose 134 mg/dL (74-106); Potassium 3.9 mmol/L (3.5-5.1); Sodium Level 137 mmol/L (136-145)
--- NOTE | 2017-08-31 07:44 | PCM.PN.HOSP ---
Patient Problems: Active and Suspected Problems Cellulitis (Acute) Subjective: Patient overnight with continued discomfort to the left underneath breast region and continued mild discharge but improved since initial presentation. Patient evaluation per Dr. Alaniz this morning with small bedside debridement performed and dressing changes specific to his requests initiated. Still pending cultures with continued IV antibiotic therapy although had been sensitive to prior oral agent from prior cultures obtained. Discussed importance of diabetic education and control with pending nutrition consult and insulin sliding scale as well as ADA diet start to which patient was amenable. Patient denies fevers, chills, nausea, emesis, abdominal pain, chest pain or dyspnea. Objective: Physical Examination: General: awake, alert, oriented x 3 and cooperative, seated upright in bed in no apparent distress. Skin: normal color, turgor, no icterus, cyanosis except status post bilateral breast reduction with right breast with incisions with suturing in place with no drainage and left breast with inferior aspect with denuded skin region with mild slough, no market foul odor, mildly necrosis skin at the inferior aspect at suture line, severely tender to palpation or movement. HEENT: AT/NC, EOMI, PERRLA, MMM. Lungs: CTA bilaterally, moderate effort, mild decrease BL bases, no rales, ronchi or wheezing. Heart: Regular rate and rhythm; no gallop, rub audible. Abdomen: soft, morbidly obese, NTTP, ND, normal BS. Extremities: no cyanosis, clubbing, see skin. Neurological: patient awake, alert, oriented x 3; cognitive function intact; pupils equally reactive to light and accomodation; cranial nerves II-XII grossly normal, moving all 4 extremities, no focal deficits, strength moderately globally decreased. Psychiatric: affect appears fatigued, no acute evidence of depressive or anxiety feelings. Vitals/I&O's: Vital Signs Temp Pulse Resp BP Pulse Ox 98.1 F 98 20 H 121/54 H 97 08/31/17 00:55 08/31/17 00:55 08/31/17 00:55 08/31/17 00:55 08/31/17 00:55 Oxygen Delivery Method Room Air Weight: 276 lb 0.3 oz Body Mass Index (BMI) 45.9 Laboratory Results 08/31/17 00:55: S.aureus Protein A PCR NEGATIVE, MRSA (PCR) Negative 08/31/17 06:23: WBC 6.4, RBC 4.20, Hgb 11.8 L, Hct 36.7 L, MCV 87.4, MCH 28.1, MCHC 32.2, RDW 14.3, RDW Differential 45.3 H, Plt Count 393, MPV 8.7, Immature Gran % (Auto) 0.200, Neut % (Auto) 52.7, Lymph % (Auto) 35.0, [place] % (Auto) 9.5, Eos % (Auto) 2.3, Baso % (Auto) 0.3, Absolute Neuts (auto) 3.4, Absolute Lymphs (auto) 2.25, Total Counted Not Reportable 08/31/17 06:23: Sodium 137, Potassium 3.9, Chloride 103, Carbon Dioxide 26.0, Anion Gap 8, BUN 8, Creatinine 0.55, Estim Creat Clear Calc 110.11, Est GFR (MDRD) Af Amer 149, Est GFR (MDRD) Non-Af 123, BUN/Creatinine Ratio 14.4, Glucose 134 H, Calcium 8.6 Current Medications Cholecalciferol (Vitamin D) 5,000 unit PO DAILY [facility] Dextrose (D50w Syringe) 0 gm IV X1 PRN; Protocol PRN Reason: Hypoglycemia Diazepam (Valium) 5 mg PO BID PRN PRN Reason: SPASMS Docusate Sodium (Colace) 100 mg PO BID [facility] Enoxaparin Sodium (Lovenox) 40 mg SC DAILY [facility] Ferrous Sulfate (Ferrous Sulfate) 325 mg PO QHS [facility] Glucagon () 1 mg IM .X1 PRN PRN Reason: Hypoglycemia Sodium Chloride () 1,000 mls @ 100 mls/hr IV .Q10H [facility] Last Admin: 08/31/17 01:12 Dose: 100 mls/hr Piperacillin Sod/Tazobactam Sod (Zosyn) 3.375 gm in 50 mls @ 12.5 mls/hr IV Q8 [facility] Last Admin: 08/31/17 06:27 Dose: 12.5 mls/hr Lisinopril (Zestril) 20 mg PO DAILY [facility] Magnesium Hydroxide (Milk Of Magnesia) 30 ml PO DAILY PRN PRN PRN Reason: Constipation Metformin HCl (Glucophage) 1,000 mg PO BIDCM [facility] Nutritional Formula (Lactose Free) (Glucerna Shake) 120 ml PO 4X/DAY [facility] Nystatin (Mycostatin Powder) 1 applic TOPICAL BID CLAIRE PRN Reason: Protocol Oxycodone HCl (Oxyir) 5 mg PO Q4H PRN PRN PRN Reason: Moderate Pain (pain scale 4-5) Pantoprazole Sodium (Protonix) 40 mg PO DAILY [facility] Sodium Chloride () 5 - 30 ml IV UD PRN PRN Reason: SALINE FLUSH Thyroid (Commiskey Thyroid) 90 mg PO DAILY@0600 [facility] Last Admin: 08/31/17 06:27 Dose: 90 mg Medical Necessity - Tobacco Use Smoking Status: Never smoker Assessment/Plan Active and Suspected Problems Cellulitis (Acute) The patient is a 52 y/o F w/ PMHx: Morbid Obesity, Hypothyroidism, Fe Deficiency Anemia, GERD, HTN, HLD, Chronic Back Pain, Diabetes mellitus type II s/p recent 08/10/17 BL breast reduction mammaplasty per Dr. Carson who presents to the [facility] ED on 08/30/17 with development of incisional breakdown with drainage over the last week with wound culture obtained outpatient and initiation on Levaquin (Wound Cx 08/22/17 w/ Serratia and staph aureus in addition to anaerobic culture with Clostridium species and Prevotella) with continued ongoing drainage as well as foul older and onset of diaphoresis but no specific fevers or chills x 24-48 hours. (1) Left breast incisional breakdown and postoperative infection (08/22/17 Wound Cx w/ Serratia and staph aureus in addition to anaerobic culture with Clostridium species and Prevotella): Admitted to [place], maintain on IV zosyn pending repeat Cx, MRSA and staph PCR negative thus will not continue vancomycin, Dr. Mcrae evaluation of patient with localized wound debridement, dressing changes per his discretion, pending consultation w/ Wound RN, pending ID consultation to assure optimize care to avoid further infection as region and type of surgery already prone to post-op infection, encourage DM control with pending Nutrition consultation and alterations to her regimen and diet, Mag pending. Trend CBC. (2) Diabetes mellitus type II: Hold oral home regimen, hemoglobin A1c pending, nutrition consulted for diet education and teaching, ADA diet, accu checks w/ ISS. (3) Hypertension: Continue home regimen including lisinopril, PRN hydralazine. (4) Morbid Obesity: Weight loss and lifestyle changes encouraged, nutrition consulted. (5) Hypothyroidism: Continue home synthroid regimen. (6) Iron deficiency anemia: Admission hemoglobin 12.6, repeat 11.8, continue iron supplementation. (7) GERD: PPI. (8) DVT prophylaxis: SCDs, Lovenox. Code Visit Inpatient E&M: 39636 Subs Hosp L2
--- NOTE | 2017-08-31 07:50 | PN_ITS ---
Patient Problems: Active and Suspected Problems Cellulitis (Acute) Subjective: Patient overnight with continued discomfort to the left underneath breast region and continued mild discharge but improved since initial presentation. Patient evaluation per Dr. Alaniz this morning with small bedside debridement performed and dressing changes specific to his requests initiated. Still pending cultures with continued IV antibiotic therapy although had been sensitive to prior oral agent from prior cultures obtained. Discussed importance of diabetic education and control with pending nutrition consult and insulin sliding scale as well as ADA diet start to which patient was amenable. Patient denies fevers, chills, nausea, emesis, abdominal pain, chest pain or dyspnea. Objective: Physical Examination: General: awake, alert, oriented x 3 and cooperative, seated upright in bed in no apparent distress. Skin: normal color, turgor, no icterus, cyanosis except status post bilateral breast reduction with right breast with incisions with suturing in place with no drainage and left breast with inferior aspect with denuded skin region with mild slough, no market foul odor, mildly necrosis skin at the inferior aspect at suture line, severely tender to palpation or movement. HEENT: AT/NC, EOMI, PERRLA, MMM. Lungs: CTA bilaterally, moderate effort, mild decrease BL bases, no rales, ronchi or wheezing. Heart: Regular rate and rhythm; no gallop, rub audible. Abdomen: soft, morbidly obese, NTTP, ND, normal BS. Extremities: no cyanosis, clubbing, see skin. Neurological: patient awake, alert, oriented x 3; cognitive function intact; pupils equally reactive to light and accomodation; cranial nerves II-XII grossly normal, moving all 4 extremities, no focal deficits, strength moderately globally decreased. Psychiatric: affect appears fatigued, no acute evidence of depressive or anxiety feelings. Vitals/I&O's: Vital Signs Temp Pulse Resp BP Pulse Ox 98.1 F 98 20 H 121/54 H 97 08/31/17 00:55 08/31/17 00:55 08/31/17 00:55 08/31/17 00:55 08/31/17 00:55 Oxygen Delivery Method Room Air Weight: 276 lb 0.3 oz Body Mass Index (BMI) 45.9 Laboratory Results 08/31/17 00:55: S.aureus Protein A PCR NEGATIVE, MRSA (PCR) Negative 08/31/17 06:23: WBC 6.4, RBC 4.20, Hgb 11.8 L, Hct 36.7 L, MCV 87.4, MCH 28.1, MCHC 32.2, RDW 14.3, RDW Differential 45.3 H, Plt Count 393, MPV 8.7, Immature Gran % (Auto) 0.200, Neut % (Auto) 52.7, Lymph % (Auto) 35.0, [place] % (Auto) 9.5 , Eos % (Auto) 2.3, Baso % (Auto) 0.3, Absolute Neuts (auto) 3.4, Absolute Lymphs (auto) 2.25, Total Counted Not Reportable 08/31/17 06:23: Sodium 137, Potassium 3.9, Chloride 103, Carbon Dioxide 26.0, Anion Gap 8, BUN 8, Creatinine 0.55, Estim Creat Clear Calc 110.11, Est GFR ( MDRD) Af Amer 149, Est GFR (MDRD) Non-Af 123, BUN/Creatinine Ratio 14.4, Glucose 134 H, Calcium 8.6 Current Medications Cholecalciferol (Vitamin D) 5,000 unit PO DAILY [facility] Dextrose (D50w Syringe) 0 gm IV X1 PRN; Protocol PRN Reason: Hypoglycemia Diazepam (Valium) 5 mg PO BID PRN PRN Reason: SPASMS Docusate Sodium (Colace) 100 mg PO BID CLAIRE Enoxaparin Sodium (Lovenox) 40 mg SC DAILY [facility] Ferrous Sulfate (Ferrous Sulfate) 325 mg PO QHS [facility]IRE Glucagon () 1 mg IM .X1 PRN PRN Reason: Hypoglycemia Sodium Chloride () 1,000 mls @ 100 mls/hr IV .Q10H [facility] Last Admin: 08/31/17 01:12 Dose: 100 mls/hr Piperacillin Sod/Tazobactam Sod (Zosyn) 3.375 gm in 50 mls @ 12.5 mls/hr IV Q8 [facility] Last Admin: 08/31/17 06:27 Dose: 12.5 mls/hr Lisinopril (Zestril) 20 mg PO DAILY [facility] Magnesium Hydroxide (Milk Of Magnesia) 30 ml PO DAILY PRN PRN PRN Reason: Constipation Metformin HCl (Glucophage) 1,000 mg PO BIDCM [facility] Nutritional Formula (Lactose Free) (Glucerna Shake) 120 ml PO 4X/DAY [facility] Nystatin (Mycostatin Powder) 1 applic TOPICAL BID [facility] PRN Reason: Protocol Oxycodone HCl (Oxyir) 5 mg PO Q4H PRN PRN PRN Reason: Moderate Pain (pain scale 4-5) Pantoprazole Sodium (Protonix) 40 mg PO DAILY [facility] Sodium Chloride () 5 - 30 ml IV UD PRN PRN Reason: SALINE FLUSH Thyroid (Doss Thyroid) 90 mg PO DAILY@0600 [facility] Last Admin: 08/31/17 06:27 Dose: 90 mg Medical Necessity - Tobacco Use Smoking Status: Never smoker Assessment/Plan Active and Suspected Problems Cellulitis (Acute) The patient is a 52 y/o F w/ PMHx: Morbid Obesity, Hypothyroidism, Fe Deficiency Anemia, GERD, HTN, HLD, Chronic Back Pain, Diabetes mellitus type II s/p recent 08/10/17 BL breast reduction mammaplasty per Dr. Carson who presents to the [facility] ED on 08/30/17 with development of incisional breakdown with drainage over the last week with wound culture obtained outpatient and initiation on Levaquin (Wound Cx 08/22/17 w/ Serratia and staph aureus in addition to anaerobic culture with Clostridium species and Prevotella) with continued ongoing drainage as well as foul older and onset of diaphoresis but no specific fevers or chills x 24-48 hours. (1) Left breast incisional breakdown and postoperative infection (08/22/17 Wound Cx w/ Serratia and staph aureus in addition to anaerobic culture with Clostridium species and Prevotella): Admitted to [place], maintain on IV zosyn pending repeat Cx, MRSA and staph PCR negative thus will not continue vancomycin , Dr. Mcrae evaluation of patient with localized wound debridement, dressing changes per his discretion, pending consultation w/ Wound RN, pending ID consultation to assure optimize care to avoid further infection as region and type of surgery already prone to post-op infection, encourage DM control with pending Nutrition consultation and alterations to her regimen and diet, Mag pending. Trend CBC. (2) Diabetes mellitus type II: Hold oral home regimen, hemoglobin A1c pending, nutrition consulted for diet education and teaching, ADA diet, accu checks w/ ISS. (3) Hypertension: Continue home regimen including lisinopril, PRN hydralazine. (4) Morbid Obesity: Weight loss and lifestyle changes encouraged, nutrition consulted. (5) Hypothyroidism: Continue home synthroid regimen. (6) Iron deficiency anemia: Admission hemoglobin 12.6, repeat 11.8, continue iron supplementation. (7) GERD: PPI. (8) DVT prophylaxis: SCDs, Lovenox. Code Visit Inpatient E&M: 70878 Subs Hosp L2
[2017-08-31 08:07] LABS: Magnesium 1.7 mg/dL (1.6-2.6)
[2017-08-31 08:26] VITALS: BP 124/52; PULSE 84; RESP 18; TEMP 37.5; O2SAT 98
[2017-08-31 08:45] LABS: Hemoglobin A1c 7.1 % (4.2-6.3)
--- NOTE | 2017-08-31 09:08 | NURSING ---
bgt 134 with AM labs- AM BGT not taken- pt was eating at shift change this AM. Will recheck prior to lunch.
[2017-08-31] MEDS: Lisinopril 20 MG Tablet PO (09:10)
[2017-08-31] MEDS: Docusate Sodium 100 MG Capsule PO ×2 (09:11→21:07)
[2017-08-31] MEDS: Enoxaparin 40 MG/0.4 ML Syringe SC (09:12)
--- NOTE | 2017-08-31 10:34 | PCM.CONS.GEN ---
Reason for Consult Date of Consultation: 08/31/17 History of Present Illness: The patient is a 52 year old F who presents to [facility] emergency department with complaint of wound complications secondary to her recent bilateral breast reduction procedure. The patient underwent bilateral breast reduction performed by Dr. Jonah Carson on August 09, 2017. the patient has medical comorbidities including diabetes and morbid obesity. her hemoglobin A1c recently as 7.1 and her blood sugars are in the 200 range. Postoperatively, the patient developed inflammation and a degree of superficial skin necrosis. It sounds like at both the right and left T point incisions in her reduction incisions. The right incision has a small area of necrotic tissue but is otherwise healing well. The left incision appears to have had a larger amount of superficial skin necrosis and then incisional dehiscence. Wound cultures were obtained which returned as pansensitive Serratia and staphylococcal aureus. The patient. I understand was given Levaquin as an outpatient. The patient has been reluctant to look at the wound since discharge. Apparently her looked at the wound yesterday noted some greenish discharge and some bleeding and had the patient presented to [facility] emergency department. Dr. Carson is out of town and is unavailable currently. I was contacted by the emergency physician and was happy to assist in care of this patient in his absence. The patient's blood count was obtained with a normal WBC count. She notes no fever or other difficulties. Wet-to-dry dressing was placed on the dehisced wound in the emergency department. Past Medical History Past Medical History (Chronic Problems): Chronic Problems Hypertrophy of breast (Chronic) Allergies adhesive tape Adverse Reaction (Verified 08/22/17 16:11) SKIN BREAKDOWN Home Medications: Ambulatory Orders Medication Instructions Recorded canagliflozin 100 mg tablet 100 mg PO QAM 07/29/17 cholecalciferol (vitamin D3) 5,000 5,000 unit PO QDAY 07/29/17 unit capsule ferrous sulfate 325 mg (65 mg 325 mg PO QHS tab 07/29/17 iron) tablet lisinopril 20 mg tablet 20 mg PO QDAY 07/29/17 omeprazole 40 mg-sodium 1 cap PO QDAY 07/29/17 bicarbonate 1.1 gram capsule thyroid (pork) 90 mg tablet 90 mg PO 0600 07/29/17 Diazepam [Valium] 5 mg PO BID PRN #10 tab 08/10/17 nystatin 100,000 unit/gram topical 1 applic TOPICAL BID #60 g 08/22/17 powder levofloxacin 500 mg tablet 500 mg PO QDAY #14 tab 08/25/17 RX: Docusate Sodium [Colace] 100 mg PO BID 08/30/17 RX: Metformin HCl [Glucophage] 1,000 mg PO BIDCM 08/30/17 Surgical History: - - recent bilateral breast reduction Smoking Status: Never smoker Alcohol: None Drugs: None - *Family History Maternal History Items: No pertinent history Review of Systems Constitutional: Denies: Chills, Fever, Weight Change HEENT: Denies: Head Aches, Sinus Congestion, Sinus Drainage Cardiovascular: Denies: Chest Pain, Palpitations Respiratory: Denies: Cough, Shortness of breath at rest, Sputum production Gastrointestinal: Denies: Abdominal Pain, Nausea, Vomiting Genitourinary: Denies: Dysuria Musculoskeletal: Denies: Joint Pain, Joint Tenderness Skin: Denies: Rash, Wounds Neurological: Denies: Numbness, Tingling, Focal weakness Psychiatric: Denies: Anxiety, Depression, Homicidal Ideations, Suicidal Ideations Hematologic/ Lymphatic: Denies: Easy Bruising, Easy Bleeding Patient Problems: Active and Suspected Problems Cellulitis (Acute) - Physical Exam General: Alert, Oriented x3, Cooperative Lungs: Clear to auscultation, Normal air movement Cardiovascular: Regular rate, Regular Rhythm Abdomen: Bowel Sounds Present, Obese Skin: - - right breast-a 2 x 1 cm area of some superficial skin necrosis at the junction of the T incision at the 6:00 position of her right breast. Otherwise, the incision is healing well. There is no signs of infection or drainage. A small dressing is placed on that site. Left breast-significant breakdown of the entire inframammary incision with what appears to be local skin necrosis and dehiscence of the incision. There were some sutures that were removed and necrotic skin that was debrided. This included both Prolene sutures and running likely Biosyn sutures. The entire wound length was approximately 15 cm x 4 cm. The underlying tissue actually appeared healthy and was developing granulation tissue. There is some areas of superficial slough and mild necrosis, but there was no frankly necrotic tissue that required extensive debridement just minor debridement of the necrotic skin and sutures. Aquaphor dressing was placed after debridement. Since there was some minor bleeding following the debridement and a dressing applied. Vital Signs Temp Pulse Resp BP Pulse Ox 99.5 F H 84 18 124/52 H 98 08/31/17 08:26 08/31/17 08:26 08/31/17 08:26 08/31/17 08:26 08/31/17 08:26 Oxygen Delivery Method Room Air Weight: 125.2 kg Body Mass Index (BMI) 45.9 Intake and Output for Last 24 Hours 08/29/17 08/30/17 08/31/17 23:59 23:59 23:59 Intake Total 1037 / 1037 Balance 1037 / 1037 Laboratory Tests Past 24 Hrs 08/31/17 08/31/17 08/31/17 00:55 06:23 06:23 WBC 6.4 RBC 4.20 Hgb 11.8 L Hct 36.7 L MCV 87.4 MCH 28.1 MCHC 32.2 RDW 14.3 RDW Differential 45.3 H Plt Count 393 MPV 8.7 Immature Gran % (Auto) 0.200 Neut % (Auto) 52.7 Lymph % (Auto) 35.0 [place] % (Auto) 9.5 Eos % (Auto) 2.3 Baso % (Auto) 0.3 Absolute Neuts (auto) 3.4 Absolute Lymphs (auto) 2.25 Total Counted Not Reportable Sodium 137 Potassium 3.9 Chloride 103 Carbon Dioxide 26.0 Anion Gap 8 BUN 8 Creatinine 0.55 Estim Creat Clear Calc 110.11 Est GFR (MDRD) Af Amer 149 Est GFR (MDRD) Non-Af 123 BUN/Creatinine Ratio 14.4 Glucose 134 H Hemoglobin A1c Calcium 8.6 Magnesium S.aureus Protein A PCR NEGATIVE MRSA (PCR) Negative 08/31/17 08/31/17 06:32 06:32 WBC RBC Hgb Hct MCV MCH MCHC RDW RDW Differential Plt Count MPV Immature Gran % (Auto) Neut % (Auto) Lymph % (Auto) [place] % (Auto) Eos % (Auto) Baso % (Auto) Absolute Neuts (auto) Absolute Lymphs (auto) Total Counted Sodium Potassium Chloride Carbon Dioxide Anion Gap BUN Creatinine Estim Creat Clear Calc Est GFR (MDRD) Af Amer Est GFR (MDRD) Non-Af BUN/Creatinine Ratio Glucose Hemoglobin A1c 7.1 H Calcium Magnesium 1.7 S.aureus Protein A PCR MRSA (PCR) Assessment/Plan Active and Suspected Problems Cellulitis (Acute) superficial skin necrosis-dehiscence of inframammary incision of the left post reduction mammoplasty incision. The site was examined by myself and Dr. Cormier. I reassured that actually this infection does not look particularly ominous. For the most part, there is already good granulation tissue developing along the open wound area and I expect this will heal with appropriate local wound care. he does not appear to be deeper cellulitis or any undrained collections. After a local debridement. I will plan for Aquaphor dressings today, but likely switch to either wet to dries again or topical Silvadene. If it seems like there is been good. Debridement of the superficial sloughing material. Repeat cultures were obtained and we will watch for those to assure that there are no pathogenic organisms compared to the last superficial culture.
--- NOTE | 2017-08-31 10:42 | CON.PCM_ITS ---
Reason for Consult Date of Consultation: 08/31/17 History of Present Illness: The patient is a 52 year old F who presents to [facility] emergency department with complaint of wound complications secondary to her recent bilateral breast reduction procedure. The patient underwent bilateral breast reduction performed by Dr. Jonah Carson on August 09, 2017. the patient has medical comorbidities including diabetes and morbid obesity. her hemoglobin A1c recently as 7.1 and her blood sugars are in the 200 range. Postoperatively, the patient developed inflammation and a degree of superficial skin necrosis. It sounds like at both the right and left T point incisions in her reduction incisions. The right incision has a small area of necrotic tissue but is otherwise healing well. The left incision appears to have had a larger amount of superficial skin necrosis and then incisional dehiscence. Wound cultures were obtained which returned as pansensitive Serratia and staphylococcal aureus. The patient. I understand was given Levaquin as an outpatient. The patient has been reluctant to look at the wound since discharge. Apparently her looked at the wound yesterday noted some greenish discharge and some bleeding and had the patient presented to [facility] emergency department. Dr. Carson is out of town and is unavailable currently. I was contacted by the emergency physician and was happy to assist in care of this patient in his absence. The patient's blood count was obtained with a normal WBC count. She notes no fever or other difficulties. Wet-to-dry dressing was placed on the dehisced wound in the emergency department. Past Medical History Past Medical History (Chronic Problems): Chronic Problems Hypertrophy of breast (Chronic) Allergies adhesive tape Adverse Reaction (Verified 08/22/17 16:11) SKIN BREAKDOWN Home Medications: Ambulatory Orders Medication Instructions Recorded canagliflozin 100 mg tablet 100 mg PO QAM 07/29/17 cholecalciferol (vitamin D3) 5,000 5,000 unit PO QDAY 07/29/17 unit capsule ferrous sulfate 325 mg (65 mg 325 mg PO QHS tab 07/29/17 iron) tablet lisinopril 20 mg tablet 20 mg PO QDAY 07/29/17 omeprazole 40 mg-sodium 1 cap PO QDAY 07/29/17 bicarbonate 1.1 gram capsule thyroid (pork) 90 mg tablet 90 mg PO 0600 07/29/17 Diazepam [Valium] 5 mg PO BID PRN #10 tab 08/10/17 nystatin 100,000 unit/gram topical 1 applic TOPICAL BID #60 g 08/22/17 powder levofloxacin 500 mg tablet 500 mg PO QDAY #14 tab 08/25/17 RX: Docusate Sodium [Colace] 100 mg PO BID 08/30/17 RX: Metformin HCl [Glucophage] 1,000 mg PO BIDCM 08/30/17 Surgical History: - - recent bilateral breast reduction Smoking Status: Never smoker Alcohol: None Drugs: None - *Family History Maternal History Items: No pertinent history Review of Systems Constitutional: Denies: Chills, Fever, Weight Change HEENT: Denies: Head Aches, Sinus Congestion, Sinus Drainage Cardiovascular: Denies: Chest Pain, Palpitations Respiratory: Denies: Cough, Shortness of breath at rest, Sputum production Gastrointestinal: Denies: Abdominal Pain, Nausea, Vomiting Genitourinary: Denies: Dysuria Musculoskeletal: Denies: Joint Pain, Joint Tenderness Skin: Denies: Rash, Wounds Neurological: Denies: Numbness, Tingling, Focal weakness Psychiatric: Denies: Anxiety, Depression, Homicidal Ideations, Suicidal Ideations Hematologic/ Lymphatic: Denies: Easy Bruising, Easy Bleeding Patient Problems: Active and Suspected Problems Cellulitis (Acute) - Physical Exam General: Alert, Oriented x3, Cooperative Lungs: Clear to auscultation, Normal air movement Cardiovascular: Regular rate, Regular Rhythm Abdomen: Bowel Sounds Present, Obese Skin: - - right breast-a 2 x 1 cm area of some superficial skin necrosis at the junction of the T incision at the 6:00 position of her right breast. Otherwise , the incision is healing well. There is no signs of infection or drainage. A small dressing is placed on that site. Left breast-significant breakdown of the entire inframammary incision with what appears to be local skin necrosis and dehiscence of the incision. There were some sutures that were removed and necrotic skin that was debrided. This included both Prolene sutures and running likely Biosyn sutures. The entire wound length was approximately 15 cm x 4 cm. The underlying tissue actually appeared healthy and was developing granulation tissue. There is some areas of superficial slough and mild necrosis , but there was no frankly necrotic tissue that required extensive debridement just minor debridement of the necrotic skin and sutures. Aquaphor dressing was placed after debridement. Since there was some minor bleeding following the debridement and a dressing applied. Vital Signs Temp Pulse Resp BP Pulse Ox 99.5 F H 84 18 124/52 H 98 08/31/17 08:26 08/31/17 08:26 08/31/17 08:26 08/31/17 08:26 08/31/17 08:26 Oxygen Delivery Method Room Air Weight: 125.2 kg Body Mass Index (BMI) 45.9 Intake and Output for Last 24 Hours 08/29/17 08/30/17 08/31/17 23:59 23:59 23:59 Intake Total 1037 / 1037 Balance 1037 / 1037 Laboratory Tests Past 24 Hrs 08/31/17 08/31/17 08/31/17 00:55 06:23 06:23 WBC 6.4 RBC 4.20 Hgb 11.8 L Hct 36.7 L MCV 87.4 MCH 28.1 MCHC 32.2 RDW 14.3 RDW Differential 45.3 H Plt Count 393 MPV 8.7 Immature Gran % (Auto) 0.200 Neut % (Auto) 52.7 Lymph % (Auto) 35.0 [place] % (Auto) 9.5 Eos % (Auto) 2.3 Baso % (Auto) 0.3 Absolute Neuts (auto) 3.4 Absolute Lymphs (auto) 2.25 Total Counted Not Reportable Sodium 137 Potassium 3.9 Chloride 103 Carbon Dioxide 26.0 Anion Gap 8 BUN 8 Creatinine 0.55 Estim Creat Clear Calc 110.11 Est GFR (MDRD) Af Amer 149 Est GFR (MDRD) Non-Af 123 BUN/Creatinine Ratio 14.4 Glucose 134 H Hemoglobin A1c Calcium 8.6 Magnesium S.aureus Protein A PCR NEGATIVE MRSA (PCR) Negative 08/31/17 08/31/17 06:32 06:32 WBC RBC Hgb Hct MCV MCH MCHC RDW RDW Differential Plt Count MPV Immature Gran % (Auto) Neut % (Auto) Lymph % (Auto) [place] % (Auto) Eos % (Auto) Baso % (Auto) Absolute Neuts (auto) Absolute Lymphs (auto) Total Counted Sodium Potassium Chloride Carbon Dioxide Anion Gap BUN Creatinine Estim Creat Clear Calc Est GFR (MDRD) Af Amer Est GFR (MDRD) Non-Af BUN/Creatinine Ratio Glucose Hemoglobin A1c 7.1 H Calcium Magnesium 1.7 S.aureus Protein A PCR MRSA (PCR) Assessment/Plan Active and Suspected Problems Cellulitis (Acute) superficial skin necrosis-dehiscence of inframammary incision of the left post reduction mammoplasty incision. The site was examined by myself and Dr. Cormier. I reassured that actually this infection does not look particularly ominous. For the most part, there is already good granulation tissue developing along the open wound area and I expect this will heal with appropriate local wound care. he does not appear to be deeper cellulitis or any undrained collections. After a local debridement. I will plan for Aquaphor dressings today, but likely switch to either wet to dries again or topical Silvadene. If it seems like there is been good. Debridement of the superficial sloughing material. Repeat cultures were obtained and we will watch for those to assure that there are no pathogenic organisms compared to the last superficial culture.
--- NOTE | 2017-08-31 11:07 | NURSING ---
This RN called Dr. La's answering service- notified them of consult. Understanding verbalized- however, state that he will not be in to see patient until saturday.
[2017-08-31] MEDS: Nystatin Powder 15gm Bottle 1 APPLIC TOPICAL ×2 (11:14→21:07)
[2017-08-31 11:25] LABS: Bedside Glucose 146 mg/dL (70-110)
--- NOTE | 2017-08-31 12:28 | PN.SURG_ITS ---
Patient Problems: Active and Suspected Problems Cellulitis (Acute) Subjective: Postop #22 Patient had bilateral breast reduction mammaplasty on 08/09/17. Postop she developed some wound separation at the Tzone left breast. Wound care was initiated with Silver dressing changes daily. Culture showed Serratia marcescens and Staphylococcus aureus. She was started on Levaquin. Anaerobes were positive a few days ago. She came to the ED last night because of increased drainage with some blood on the dressing. She was admitted and started on IV antibiotics with Vancomycin and Cleocin. She Her antibiotics were then changed to Zosyn as MRSA PCR was negative. In the ED her WBC was 9.3. Today it was 6.4. I was out of town until yesterday. Dr. Mcrae graciously saw the patient this morning and provided assistance in her care which was appreciated. - Physical Exam General: Alert, Oriented x3 HEENT: PERRLA, EOMI Neck: Supple Skin: Ulcer/ Wound - Breasts are soft and symmetrical. Nipples are viable. On the left breast at the Tzone is a nonhealing wound measuring 15 x 4 cm. Some granulation tissue is seen. Surrounding skin is not macerated. Some periwound rash present probably from recent drainage. No purulent drainage noted. Minimal cellulitis noted. Aquacel Silver dressing applied. On the right breast at the Tzone is a small area of partial thickness injury. Measures 2 x 1 cm. Will also dress with Aquacel Silver to help with drainage to keep the surrounding skin dry. Lymphatic: - - no axillary adenopathy. Neurological: Cranial nerves II-XII grossly intact Psych/Mental Status: Normal Affect, Appropriate Vital Signs Temp Pulse Resp BP Pulse Ox 99.5 F H 84 18 124/52 H 98 08/31/17 08:26 08/31/17 08:26 08/31/17 08:26 08/31/17 08:26 08/31/17 08:26 Oxygen Delivery Method Room Air Weight: 276 lb 0.3 oz Body Mass Index (BMI) 45.9 Intake and Output for Last 24 Hours 08/29/17 08/30/17 08/31/17 23:59 23:59 23:59 Intake Total 1615 / 1615 Balance 1615 / 1615 Laboratory Tests Past 24 Hrs 08/31/17 08/31/17 08/31/17 00:55 06:23 06:23 WBC 6.4 RBC 4.20 Hgb 11.8 L Hct 36.7 L MCV 87.4 MCH 28.1 MCHC 32.2 RDW 14.3 RDW Differential 45.3 H Plt Count 393 MPV 8.7 Immature Gran % (Auto) 0.200 Neut % (Auto) 52.7 Lymph % (Auto) 35.0 [place] % (Auto) 9.5 Eos % (Auto) 2.3 Baso % (Auto) 0.3 Absolute Neuts (auto) 3.4 Absolute Lymphs (auto) 2.25 Total Counted Not Reportable Sodium 137 Potassium 3.9 Chloride 103 Carbon Dioxide 26.0 Anion Gap 8 BUN 8 Creatinine 0.55 Estim Creat Clear Calc 110.11 Est GFR (MDRD) Af Amer 149 Est GFR (MDRD) Non-Af 123 BUN/Creatinine Ratio 14.4 Glucose 134 H Hemoglobin A1c Calcium 8.6 Magnesium S.aureus Protein A PCR NEGATIVE MRSA (PCR) Negative 08/31/17 08/31/17 06:32 06:32 WBC RBC Hgb Hct MCV MCH MCHC RDW RDW Differential Plt Count MPV Immature Gran % (Auto) Neut % (Auto) Lymph % (Auto) [place] % (Auto) Eos % (Auto) Baso % (Auto) Absolute Neuts (auto) Absolute Lymphs (auto) Total Counted Sodium Potassium Chloride Carbon Dioxide Anion Gap BUN Creatinine Estim Creat Clear Calc Est GFR (MDRD) Af Amer Est GFR (MDRD) Non-Af BUN/Creatinine Ratio Glucose Hemoglobin A1c 7.1 H Calcium Magnesium 1.7 S.aureus Protein A PCR MRSA (PCR) POC Glucose 08/31/17 11:12 POC Glucose 146 H Ultrasound left arm was done in the ED - No evidence for acute deep venous thrombosis[left] upper extremity with patent and compressible cephalic and basilic veins. Medical Necessity - Tobacco Use Smoking Status: Never smoker Assessment/Plan Active and Suspected Problems Cellulitis (Acute) : 1. Nonhealing surgical wound left breast with cellulitis. 2. Bilateral macromastia. 3. Neck pain. 4. Thoracic back pain. 6. Bilateral shoulder pain from the shoulder grooving from the way to the breast on her bra straps. 6. Inframammary intertrigo. 7. Family history of breast cancer. 8. s/p bilateral breast reduction mammaplasty. Appreciate assistance from Hospitalist Group and General Surgery. Wounds are stable at the present time. Will start Aquacel Silver dressing changes daily. No urgent need for surgical intervention at this time. Reassured patient that wounds will heal with wound care, antibiotics, and nutrition. In future, if wound care becomes problematic, can proceed with delayed closure with skin grafting. Continue IV Zosyn. With the greenish drainage as reported by the patient, will add Levaquin. Wound cultures are pending. The previous cultures from the office showed Staphylococcus aureus, Serratia marcescens, and Anaerobes. Will determine prior to discharge regarding continuing oral antibiotics or placing a PICC line and proceeding with IV antibiotics at home. Prealbumin on 08/10/17 was 20.5. Encourage nutritional supplementation with protein to help the healing process.
--- NOTE | 2017-08-31 13:23 | CM.UR ---
Met face to face with patient approximately around 10:46am. Vet states that previously she went home with drains but they have since been removed. States that she has done a lot, probably more than she should have, since her surgery. PCP: Cindy Burgos NP Patient denies any anticipated needs upon discharge. Case mgmt will remain available should any needs arise. Amos Zavala RN, [facility].
[2017-08-31 15:00] VITALS: BP 113/71; PULSE 92; RESP 18; TEMP 36.6; O2SAT 96
[2017-08-31] MEDS: levoFLOXacin IV 500 MG/100 ML BAG 100 MG IV (15:06)
[2017-08-31 16:41] LABS: Bedside Glucose 136 mg/dL (70-110)
[2017-08-31 21:00] VITALS: BP 134/88; PULSE 87; RESP 16; TEMP 36.7; O2SAT 96
[2017-08-31] MEDS: Ferrous Sulfate 325 MG Tablet PO (21:07)
[2017-08-31] MEDS: Insulin Lispro 100 UNIT/ML INSULN.PEN SC (21:08)
[2017-08-31 21:16] LABS: Bedside Glucose 158 mg/dL (70-110)
[2017-09-01 02:30] VITALS: BP 108/60; PULSE 87; RESP 16; TEMP 36.6; O2SAT 97
[2017-09-01] MEDS: Thyroid 60 MG Tablet 90 MG PO (05:31)
[2017-09-01] MEDS: Piperacil/Tazobactam 3.375 GM/50 ML ML IV ×3 (05:31→22:16)
--- NOTE | 2017-09-01 05:31 | NURSING ---
THIS RN HAS OFFERED PATIENT PRN PAIN MEDICATION MULTIPLE TIMES T/O SHIFT YET PATIENT HAS REFUSED
[2017-09-01] MEDS: oxyCODONE 5 MG Tablet PO ×2 (05:39→20:09)
[2017-09-01] MEDS: Insulin Lispro 100 UNIT/ML INSULN.PEN SC ×3 (06:40→22:18)
[2017-09-01 06:46] LABS: Bedside Glucose 165 mg/dL (70-110)
[2017-09-01 07:29] LABS: Absolute Neutrophil Count 3.5 X10^3/uL (2.0-7.7); Basophil# 0.02 X10^3/uL; Basophil% 0.3 % (0-1); Eosinophil# 0.13 X10^3/uL; Hemoglobin 12.5 g/dl (12.0-15.0); Lymphocyte % 32.8 % (19-41); Mean Corp Hgb Conc 32.1 g/gl (32-36); Mean Corpuscular Volume 87.2 fL (81-99); Mean Platelet Vol. 8.7 fl (6.2-12.0); Monocyte# 0.68 X10^3/uL; Monocyte% 10.6 % (0-10); Neutrophil # 3.47 X10^3/uL (2.7-7.7); Neutrophil % 54.3 % (47-70); Platelet Count 325 K/mm3 (150-450); RBC Distribution Width CV 14.4 % (11.6-14.6); RBC Distribution Width SD 45.1 fl (35.1-43.9); Red Blood Count 4.47 M/mm3 (4.2-5.4); White Blood Count 6.4 K/mm3 (4.4-11.0)
[2017-09-01 07:34] LABS: POSITIVE COUNT NO; POSITIVE DIFFERENTIAL NO; POSITIVE MORPHOLOGY NO
[2017-09-01 08:01] LABS: Anion Gap 8 (5-15); BUN 9 mg/dL (7-18); BUN/Creat Ratio 12.2 RATIO (10-20); Calcium,Total 9.1 mg/dL (8.5-10.1); Chloride 101 mmol/L (98-107); Creatinine, Serum 0.74 mg/dL (0.55-1.02); EST Glomerular Filtration Rate 88 mL/min (>60); Est Glom Filt Rate - Afr Amer 107 mL/min (>60); Estimated Creatinine Clearance 81.84 ml/min; Glucose 147 mg/dL (74-106); Potassium 4.2 mmol/L (3.5-5.1); Sodium Level 134 mmol/L (136-145)
[2017-09-01 08:30] VITALS: BP 124/76; PULSE 87; RESP 18; TEMP 36.9; O2SAT 98
--- NOTE | 2017-09-01 08:56 | PCM.PN.HOSP ---
Patient Problems: Active and Suspected Problems Cellulitis (Acute) Subjective: The patient is a 52 y/o F w/ PMHx: Morbid Obesity, Hypothyroidism, Fe Deficiency Anemia, GERD, HTN, HLD, Chronic Back Pain, Diabetes mellitus type II s/p recent 08/10/17 BL breast reduction mammaplasty per Dr. Carson who presents to the [facility] ED on 08/30/17 with development of incisional breakdown with drainage over the last week with wound culture obtained outpatient and initiation on Levaquin (Wound Cx 08/22/17 w/ Serratia and staph aureus in addition to anaerobic culture with Clostridium species and Prevotella) with continued ongoing drainage as well as foul older and onset of diaphoresis but no specific fevers or chills x 24-48 hours. Left breast incisional breakdown and postoperative infection (08/22/17 Wound Cx w/ Serratia and staph aureus in addition to anaerobic culture with Clostridium species and Prevotella): Admitted to [facility], maintained on IV zosyn pending repeat Cx, MRSA and staph PCR negative thus d/c vancomycin 08/31/17, Dr. Mcrae evaluation of patient with localized wound debridement and follow-up evaluation per Dr. Carson w/ dressing changes per his discretion, pending consultation w/ Wound RN, pending ID consultation to assure optimize care to avoid further infection as region and type of surgery already prone to post-op infection, encourage DM control with Nutrition consultation and alterations to her regimen and diet, Mag 1.7. CBC without marked WBC elevation or shift. Expect ability for discharge within the next 24-48 hours pending wound cultures. Patient with no acute events overnight per self and per nursing report. She did have hesitation to take pain medicines but was encouraged to do so this morning secondary to uncontrolled pain to the left breast region and following this was mildly sluggish but notes pain was improved. Discussed patient yesterday with Dr. Carson who evaluated her and performed dressing change. Patient denies fevers, chills, nausea, emesis, abdominal pain, chest pain or dyspnea. Objective: Physical Examination: General: awakens to stimuli, intermittnetly alert, oriented x 3 and cooperative, seated upright in bed, fatigued status post recent pain regimen and menstruation. Skin: normal color, turgor, no icterus, cyanosis except status post bilateral breast reduction with right breast with incisions with suturing in place with no drainage and left breast with inferior aspect with denuded skin region with decent appearing granulation tissue, no slough, s/p debridement, severely tender to palpation or movement. HEENT: AT/NC, EOMI, PERRLA, MMM. Lungs: CTA bilaterally, moderate effort, mild decrease BL bases, no rales, ronchi or wheezing. Heart: Regular rate and rhythm; no gallop, rub audible. Abdomen: soft, morbidly obese, NTTP, ND, normal BS. Extremities: no cyanosis, clubbing, see skin. Neurological: patient awake, alert, oriented x 3; cognitive function intact; pupils equally reactive to light and accomodation; cranial nerves II-XII grossly normal, moving all 4 extremities, no focal deficits, strength moderately to severely globally decreased. Psychiatric: affect appears fatigued, recent pain regimen, no acute evidence of depressive or anxiety feelings. Vitals/I&O's: Vital Signs Temp Pulse Resp BP Pulse Ox 97.8 F 87 16 108/60 97 09/01/17 02:30 09/01/17 02:30 09/01/17 02:30 09/01/17 02:30 09/01/17 02:30 Oxygen Delivery Method Room Air Weight: 276 lb 0.3 oz Body Mass Index (BMI) 45.9 Intake and Output for Last 24 Hours 08/30/17 08/31/17 09/01/17 23:59 23:59 23:59 Intake Total 2415 / 2415 519 / 519 Balance 2415 / 2415 519 / 519 Microbiology Past 72 Hours 08/31/17 00:55 Wound - Breast Gram Stain - Final Laboratory Results 08/31/17 11:12: POC Glucose 146 H 08/31/17 16:35: POC Glucose 136 H 08/31/17 21:01: POC Glucose 158 H 09/01/17 06:38: POC Glucose 165 H 09/01/17 07:02: WBC 6.4, RBC 4.47, Hgb 12.5, Hct 39.0, MCV 87.2, MCH 28.0, MCHC 32.1, RDW 14.4, RDW Differential 45.1 H, Plt Count 325, MPV 8.7, Immature Gran % (Auto) 0.000, Neut % (Auto) 54.3, Lymph % (Auto) 32.8, [place] % (Auto) 10.6 H, Eos % (Auto) 2.0, Baso % (Auto) 0.3, Absolute Neuts (auto) 3.5, Absolute Lymphs (auto) 2.10, Total Counted Not Reportable 09/01/17 07:02: Sodium 134 L, Potassium 4.2, Chloride 101, Carbon Dioxide 25.0, Anion Gap 8, BUN 9, Creatinine 0.74, Estim Creat Clear Calc 81.84, Est GFR (MDRD) Af Amer 107, Est GFR (MDRD) Non-Af 88, BUN/Creatinine Ratio 12.2, Glucose 147 H, Calcium 9.1 Current Medications Cholecalciferol (Vitamin D) 5,000 unit PO DAILY [facility] Last Admin: 08/31/17 09:10 Dose: 5,000 unit Dextrose (D50w Syringe) 0 gm IV X1 PRN; Protocol PRN Reason: Hypoglycemia Diazepam (Valium) 5 mg PO BID PRN PRN Reason: SPASMS Docusate Sodium (Colace) 100 mg PO BID [facility] Last Admin: 08/31/17 21:07 Dose: 100 mg Enoxaparin Sodium (Lovenox) 40 mg SC DAILY [facility] Last Admin: 08/31/17 09:12 Dose: 40 mg Ferrous Sulfate (Ferrous Sulfate) 325 mg PO QHS [facility] Last Admin: 08/31/17 21:07 Dose: 325 mg Glucagon () 1 mg IM .X1 PRN PRN Reason: Hypoglycemia Hydralazine HCl (Apresoline Iv) 10 mg IV Q4H PRN PRN PRN Reason: SBP > 160 Piperacillin Sod/Tazobactam Sod (Zosyn) 3.375 gm in 50 mls @ 12.5 mls/hr IV Q8 [facility] Last Admin: 09/01/17 05:31 Dose: 12.5 mls/hr Levofloxacin (Levaquin Iv) 500 mg in 100 mls @ 100 mls/hr IV DAILY [facility] Last Admin: 08/31/17 15:06 Dose: 100 mls/hr Insulin Human Lispro (Humalog Kwikpen (Bkc)) 0 unit SC ACHS CLAIRE PRN Reason: Protocol Last Admin: 09/01/17 06:40 Dose: 1 u Lisinopril (Zestril) 20 mg PO DAILY [facility] Last Admin: 08/31/17 09:10 Dose: 20 mg Magnesium Hydroxide (Milk Of Magnesia) 30 ml PO DAILY PRN PRN PRN Reason: Constipation Nutritional Formula (Lactose Free) (Glucerna Shake) 120 ml PO 4X/DAY [facility] Last Admin: 08/31/17 21:09 Dose: Not Given Nystatin (Mycostatin Powder) 1 applic TOPICAL BID CLAIRE PRN Reason: Protocol Last Admin: 08/31/17 21:07 Dose: 1 applicatio Oxycodone HCl (Oxyir) 5 mg PO Q4H PRN PRN PRN Reason: Moderate Pain (pain scale 4-5) Last Admin: 09/01/17 05:39 Dose: 5 mg Pantoprazole Sodium (Protonix) 40 mg PO DAILY [facility] Last Admin: 08/31/17 09:16 Dose: Not Given Silver Sulfadiazine (Silvadene (Bkc)) 1 applic TOPICAL Q12H PRN PRN; Protocol PRN Reason: WOUND CARE Sodium Chloride () 5 - 30 ml IV UD PRN PRN Reason: SALINE FLUSH Thyroid ([place] Thyroid) 90 mg PO DAILY@0600 [facility] Last Admin: 09/01/17 05:31 Dose: 90 mg Medical Necessity - Tobacco Use Smoking Status: Never smoker Assessment/Plan Active and Suspected Problems Cellulitis (Acute) The patient is a 52 y/o F w/ PMHx: Morbid Obesity, Hypothyroidism, Fe Deficiency Anemia, GERD, HTN, HLD, Chronic Back Pain, Diabetes mellitus type II s/p recent 08/10/17 BL breast reduction mammaplasty per Dr. Carson who presents to the [facility] ED on 08/30/17 with development of incisional breakdown with drainage over the last week with wound culture obtained outpatient and initiation on Levaquin (Wound Cx 08/22/17 w/ Serratia and staph aureus in addition to anaerobic culture with Clostridium species and Prevotella) with continued ongoing drainage as well as foul older and onset of diaphoresis but no specific fevers or chills x 24-48 hours. (1) Left breast incisional breakdown and postoperative infection (08/22/17 Wound Cx w/ Serratia and staph aureus in addition to anaerobic culture with Clostridium species and Prevotella): Admitted to [facility], maintained on IV zosyn pending repeat Cx, MRSA and staph PCR negative thus d/c vancomycin 08/31/17, Dr. Mcrae evaluation of patient with localized wound debridement and follow-up evaluation per Dr. Carson w/ dressing changes per his discretion, pending consultation w/ Wound RN, pending ID consultation to assure optimize care to avoid further infection as region and type of surgery already prone to post-op infection, encourage DM control with Nutrition consultation and alterations to her regimen and diet, Mag 1.7. CBC without marked WBC elevation or shift. (2) Diabetes mellitus type II: Hold oral home regimen, hemoglobin A1c 7.1%, nutrition consulted for diet education and teaching, ADA diet, accu checks w/ ISS. (3) Hypertension: Continue home regimen including lisinopril, PRN hydralazine. (4) Morbid Obesity: Weight loss and lifestyle changes encouraged, nutrition consulted. (5) Hypothyroidism: Continue home synthroid regimen. (6) Iron deficiency anemia: Admission hemoglobin 12.6, repeat 11.8, continue iron supplementation. (7) GERD: PPI. (8) DVT prophylaxis: SCDs, Lovenox. Code Visit Inpatient E&M: 84069 Subs Hosp L2
--- NOTE | 2017-09-01 09:02 | PN_ITS ---
Patient Problems: Active and Suspected Problems Cellulitis (Acute) Subjective: The patient is a 52 y/o F w/ PMHx: Morbid Obesity, Hypothyroidism, Fe Deficiency Anemia, GERD, HTN, HLD, Chronic Back Pain, Diabetes mellitus type II s/p recent 08/10/17 BL breast reduction mammaplasty per Dr. Carson who presents to the [facility] ED on 08/30/17 with development of incisional breakdown with drainage over the last week with wound culture obtained outpatient and initiation on Levaquin (Wound Cx 08/22/17 w/ Serratia and staph aureus in addition to anaerobic culture with Clostridium species and Prevotella) with continued ongoing drainage as well as foul older and onset of diaphoresis but no specific fevers or chills x 24-48 hours. Left breast incisional breakdown and postoperative infection (08/22/17 Wound Cx w/ Serratia and staph aureus in addition to anaerobic culture with Clostridium species and Prevotella): Admitted to [place], maintained on IV zosyn pending repeat Cx, MRSA and staph PCR negative thus d/c vancomycin 08/31/17, Dr. Mcrae evaluation of patient with localized wound debridement and follow-up evaluation per Dr. Carson w/ dressing changes per his discretion, pending consultation w/ Wound RN, pending ID consultation to assure optimize care to avoid further infection as region and type of surgery already prone to post-op infection, encourage DM control with Nutrition consultation and alterations to her regimen and diet, Mag 1.7. CBC without marked WBC elevation or shift. Expect ability for discharge within the next 24-48 hours pending wound cultures. Patient with no acute events overnight per self and per nursing report. She did have hesitation to take pain medicines but was encouraged to do so this morning secondary to uncontrolled pain to the left breast region and following this was mildly sluggish but notes pain was improved. Discussed patient yesterday with Dr. Carson who evaluated her and performed dressing change. Patient denies fevers, chills, nausea, emesis, abdominal pain, chest pain or dyspnea. Objective: Physical Examination: General: awakens to stimuli, intermittnetly alert, oriented x 3 and cooperative , seated upright in bed, fatigued status post recent pain regimen and menstruation. Skin: normal color, turgor, no icterus, cyanosis except status post bilateral breast reduction with right breast with incisions with suturing in place with no drainage and left breast with inferior aspect with denuded skin region with decent appearing granulation tissue, no slough, s/p debridement, severely tender to palpation or movement. HEENT: AT/NC, EOMI, PERRLA, MMM. Lungs: CTA bilaterally, moderate effort, mild decrease BL bases, no rales, ronchi or wheezing. Heart: Regular rate and rhythm; no gallop, rub audible. Abdomen: soft, morbidly obese, NTTP, ND, normal BS. Extremities: no cyanosis, clubbing, see skin. Neurological: patient awake, alert, oriented x 3; cognitive function intact; pupils equally reactive to light and accomodation; cranial nerves II-XII grossly normal, moving all 4 extremities, no focal deficits, strength moderately to severely globally decreased. Psychiatric: affect appears fatigued, recent pain regimen, no acute evidence of depressive or anxiety feelings. Vitals/I&O's: Vital Signs Temp Pulse Resp BP Pulse Ox 97.8 F 87 16 108/60 97 09/01/17 02:30 09/01/17 02:30 09/01/17 02:30 09/01/17 02:30 09/01/17 02:30 Oxygen Delivery Method Room Air Weight: 276 lb 0.3 oz Body Mass Index (BMI) 45.9 Intake and Output for Last 24 Hours 08/30/17 08/31/17 09/01/17 23:59 23:59 23:59 Intake Total 2415 / 2415 519 / 519 Balance 2415 / 2415 519 / 519 Microbiology Past 72 Hours 08/31/17 00:55 Wound - Breast Gram Stain - Final Laboratory Results 08/31/17 11:12: POC Glucose 146 H 08/31/17 16:35: POC Glucose 136 H 08/31/17 21:01: POC Glucose 158 H 09/01/17 06:38: POC Glucose 165 H 09/01/17 07:02: WBC 6.4, RBC 4.47, Hgb 12.5, Hct 39.0, MCV 87.2, MCH 28.0, MCHC 32.1, RDW 14.4, RDW Differential 45.1 H, Plt Count 325, MPV 8.7, Immature Gran % (Auto) 0.000, Neut % (Auto) 54.3, Lymph % (Auto) 32.8, [place] % (Auto) 10.6 H, Eos % (Auto) 2.0, Baso % (Auto) 0.3, Absolute Neuts (auto) 3.5, Absolute Lymphs (auto) 2.10, Total Counted Not Reportable 09/01/17 07:02: Sodium 134 L, Potassium 4.2, Chloride 101, Carbon Dioxide 25.0, Anion Gap 8, BUN 9, Creatinine 0.74, Estim Creat Clear Calc 81.84, Est GFR (MDRD ) Af Amer 107, Est GFR (MDRD) Non-Af 88, BUN/Creatinine Ratio 12.2, Glucose 147 H, Calcium 9.1 Current Medications Cholecalciferol (Vitamin D) 5,000 unit PO DAILY [facility] Last Admin: 08/31/17 09:10 Dose: 5,000 unit Dextrose (D50w Syringe) 0 gm IV X1 PRN; Protocol PRN Reason: Hypoglycemia Diazepam (Valium) 5 mg PO BID PRN PRN Reason: SPASMS Docusate Sodium (Colace) 100 mg PO BID [facility] Last Admin: 08/31/17 21:07 Dose: 100 mg Enoxaparin Sodium (Lovenox) 40 mg SC DAILY [facility] Last Admin: 08/31/17 09:12 Dose: 40 mg Ferrous Sulfate (Ferrous Sulfate) 325 mg PO QHS [facility] Last Admin: 08/31/17 21:07 Dose: 325 mg Glucagon () 1 mg IM .X1 PRN PRN Reason: Hypoglycemia Hydralazine HCl (Apresoline Iv) 10 mg IV Q4H PRN PRN PRN Reason: SBP > 160 Piperacillin Sod/Tazobactam Sod (Zosyn) 3.375 gm in 50 mls @ 12.5 mls/hr IV Q8 [facility] Last Admin: 09/01/17 05:31 Dose: 12.5 mls/hr Levofloxacin (Levaquin Iv) 500 mg in 100 mls @ 100 mls/hr IV DAILY [facility] Last Admin: 08/31/17 15:06 Dose: 100 mls/hr Insulin Human Lispro (Humalog Kwikpen (Bkc)) 0 unit SC ACHS [facility] PRN Reason: Protocol Last Admin: 09/01/17 06:40 Dose: 1 u Lisinopril (Zestril) 20 mg PO DAILY [facility] Last Admin: 08/31/17 09:10 Dose: 20 mg Magnesium Hydroxide (Milk Of Magnesia) 30 ml PO DAILY PRN PRN PRN Reason: Constipation Nutritional Formula (Lactose Free) (Glucerna Shake) 120 ml PO 4X/DAY [facility] Last Admin: 08/31/17 21:09 Dose: Not Given Nystatin (Mycostatin Powder) 1 applic TOPICAL BID [facility] PRN Reason: Protocol Last Admin: 08/31/17 21:07 Dose: 1 applicatio Oxycodone HCl (Oxyir) 5 mg PO Q4H PRN PRN PRN Reason: Moderate Pain (pain scale 4-5) Last Admin: 09/01/17 05:39 Dose: 5 mg Pantoprazole Sodium (Protonix) 40 mg PO DAILY [facility] Last Admin: 08/31/17 09:16 Dose: Not Given Silver Sulfadiazine (Silvadene (Bkc)) 1 applic TOPICAL Q12H PRN PRN; Protocol PRN Reason: WOUND CARE Sodium Chloride () 5 - 30 ml IV UD PRN PRN Reason: SALINE FLUSH Thyroid ([place] Thyroid) 90 mg PO DAILY@0600 [facility] Last Admin: 09/01/17 05:31 Dose: 90 mg Medical Necessity - Tobacco Use Smoking Status: Never smoker Assessment/Plan Active and Suspected Problems Cellulitis (Acute) The patient is a 52 y/o F w/ PMHx: Morbid Obesity, Hypothyroidism, Fe Deficiency Anemia, GERD, HTN, HLD, Chronic Back Pain, Diabetes mellitus type II s/p recent 08/10/17 BL breast reduction mammaplasty per Dr. Carson who presents to the [facility] ED on 08/30/17 with development of incisional breakdown with drainage over the last week with wound culture obtained outpatient and initiation on Levaquin (Wound Cx 08/22/17 w/ Serratia and staph aureus in addition to anaerobic culture with Clostridium species and Prevotella) with continued ongoing drainage as well as foul older and onset of diaphoresis but no specific fevers or chills x 24-48 hours. (1) Left breast incisional breakdown and postoperative infection (08/22/17 Wound Cx w/ Serratia and staph aureus in addition to anaerobic culture with Clostridium species and Prevotella): Admitted to [place], maintained on IV zosyn pending repeat Cx, MRSA and staph PCR negative thus d/c vancomycin 08/31/17, Dr. Mcrae evaluation of patient with localized wound debridement and follow-up evaluation per Dr. Carson w/ dressing changes per his discretion, pending consultation w/ Wound RN, pending ID consultation to assure optimize care to avoid further infection as region and type of surgery already prone to post-op infection, encourage DM control with Nutrition consultation and alterations to her regimen and diet, Mag 1.7. CBC without marked WBC elevation or shift. (2) Diabetes mellitus type II: Hold oral home regimen, hemoglobin A1c 7.1%, nutrition consulted for diet education and teaching, ADA diet, accu checks w/ ISS. (3) Hypertension: Continue home regimen including lisinopril, PRN hydralazine. (4) Morbid Obesity: Weight loss and lifestyle changes encouraged, nutrition consulted. (5) Hypothyroidism: Continue home synthroid regimen. (6) Iron deficiency anemia: Admission hemoglobin 12.6, repeat 11.8, continue iron supplementation. (7) GERD: PPI. (8) DVT prophylaxis: SCDs, Lovenox. Code Visit Inpatient E&M: 66854 Subs Hosp L2
[2017-09-01] MEDS: Lisinopril 20 MG Tablet PO (09:57)
[2017-09-01] MEDS: Nystatin Powder 15gm Bottle 1 APPLIC TOPICAL ×2 (09:58→22:18)
[2017-09-01] MEDS: Docusate Sodium 100 MG Capsule PO ×2 (09:58→22:17)
[2017-09-01] MEDS: Enoxaparin 40 MG/0.4 ML Syringe SC (09:58)
[2017-09-01] MEDS: levoFLOXacin IV 500 MG/100 ML BAG 100 MG IV (09:58)
--- NOTE | 2017-09-01 11:11 | PCM.PN.SRG ---
Patient Problems: Active and Suspected Problems Cellulitis (Acute) Subjective: Postop #23 Patient is resting comfortably at present. Had some discomfort yesterday after walking. - Physical Exam General: Alert, Oriented x3 HEENT: PERRLA, EOMI Neck: Supple Skin: Ulcer/ Wound - Breasts are soft and symmetrical. Nipples are viable. On the left breast at the Tzone is a nonhealing wound measuring 15 x 4 cm. Some granulation tissue is seen. Surrounding skin is not macerated. Some scattered exudate present. Some periwound rash present probably from recent drainage. No purulent drainage noted. Minimal cellulitis noted. Aquacel Silver dressing applied. On the right breast at the Tzone is a small area of partial thickness injury. Measures 2 x 1 cm. Will also dress with Aquacel Silver to help with drainage to keep the surrounding skin dry. The area of partial thickness injury may open up also. Lymphatic: - - no axillary adenopathy. Neurological: Cranial nerves II-XII grossly intact Psych/Mental Status: Normal Affect, Appropriate Vital Signs Temp Pulse Resp BP Pulse Ox 98.5 F 87 18 124/76 H 98 09/01/17 08:30 09/01/17 08:30 09/01/17 08:30 09/01/17 08:30 09/01/17 08:30 Oxygen Delivery Method Room Air Weight: 276 lb 0.3 oz Body Mass Index (BMI) 45.9 Intake and Output for Last 24 Hours 08/30/17 08/31/17 09/01/17 23:59 23:59 23:59 Intake Total 2415 / 2415 519 / 519 Balance 2415 / 2415 519 / 519 Microbiology Past 72 Hours 08/31/17 00:55 Gram Stain - Final Wound - Breast Wound Culture - Preliminary Gram positive organism Laboratory Tests Past 24 Hrs 09/01/17 09/01/17 07:02 07:02 WBC 6.4 RBC 4.47 Hgb 12.5 Hct 39.0 MCV 87.2 MCH 28.0 MCHC 32.1 RDW 14.4 RDW Differential 45.1 H Plt Count 325 MPV 8.7 Immature Gran % (Auto) 0.000 Neut % (Auto) 54.3 Lymph % (Auto) 32.8 [place] % (Auto) 10.6 H Eos % (Auto) 2.0 Baso % (Auto) 0.3 Absolute Neuts (auto) 3.5 Absolute Lymphs (auto) 2.10 Total Counted Not Reportable Sodium 134 L Potassium 4.2 Chloride 101 Carbon Dioxide 25.0 Anion Gap 8 BUN 9 Creatinine 0.74 Estim Creat Clear Calc 81.84 Est GFR (MDRD) Af Amer 107 Est GFR (MDRD) Non-Af 88 BUN/Creatinine Ratio 12.2 Glucose 147 H Calcium 9.1 POC Glucose 09/01/17 08/31/17 08/31/17 06:38 21:01 16:35 POC Glucose 165 H 158 H 136 H 08/31/17 11:12 POC Glucose 146 H Medical Necessity - Tobacco Use Smoking Status: Never smoker Assessment/Plan Active and Suspected Problems Cellulitis (Acute) 1. Nonhealing surgical wound left breast with cellulitis. 2. Bilateral macromastia. 3. Neck pain. 4. Thoracic back pain. 6. Bilateral shoulder pain from the shoulder grooving from the way to the breast on her bra straps. 6. Inframammary intertrigo. 7. Family history of breast cancer. 8. s/p bilateral breast reduction mammaplasty. Appreciate assistance from Hospitalist Group and General Surgery. Wounds are stable at the present time. Continue Aquacel Silver dressing changes daily. No urgent need for surgical intervention at this time. Reassured patient that wounds will heal with wound care, antibiotics, and nutrition. In future, if wound care becomes problematic, can proceed with delayed closure with skin grafting. Continue IV Zosyn and Levaquin. Wound cultures show Gram positive organism. The previous cultures from the office showed Staphylococcus aureus, Serratia marcescens, and Anaerobes. Will determine prior to discharge regarding continuing oral antibiotics or placing a PICC line and proceeding with IV antibiotics at home. Infectious Diseases to evaluate prior to discharge. When she was walking, she noticed increased swelling. When she ambulates today, I told her to wear a compression NISHANT wrap to help minimize the swelling. Prealbumin on 08/10/17 was 20.5. Encourage nutritional supplementation with protein to help the healing process. After discharge, followup in office later in week. May have her go to the [facility] as well.
[2017-09-01 12:16] LABS: Bedside Glucose 181 mg/dL (70-110)
[2017-09-01 14:03] VITALS: BP 107/69; PULSE 98; RESP 18; TEMP 36.8; O2SAT 94
[2017-09-01 17:01] LABS: Bedside Glucose 146 mg/dL (70-110)
[2017-09-01 22:06] VITALS: BP 121/64; PULSE 93; RESP 16; TEMP 36.3; O2SAT 96
[2017-09-01] MEDS: Ferrous Sulfate 325 MG Tablet PO (22:17)
[2017-09-01] MEDS: Pantoprazole Sodium 40 MG Tablet PO (22:17)
[2017-09-01 22:41] LABS: Bedside Glucose 169 mg/dL (70-110)
[2017-09-02 03:45] VITALS: BP 103/58; PULSE 88; RESP 14; TEMP 36.1; O2SAT 96
[2017-09-02] MEDS: Thyroid 60 MG Tablet 90 MG PO (06:14)
[2017-09-02] MEDS: Piperacil/Tazobactam 3.375 GM/50 ML ML IV ×3 (06:14→21:28)
[2017-09-02 07:00] LABS: Bedside Glucose 147 mg/dL (70-110)
[2017-09-02 07:08] LABS: Absolute Lymphocyte Count 2.45 X10^3/ul (0.83-4.51); Absolute Neutrophil Count 3.4 X10^3/uL (2.0-7.7); Basophil# 0.02 X10^3/uL; Basophil% 0.3 % (0-1); Eosinophil# 0.14 X10^3/uL; Eosinophils% 2.1 % (0-5); Hematocrit 36.6 % (37-47); Hemoglobin 12.1 g/dl (12.0-15.0); Lymphocyte # 2.45 X10^3/ul (4.0); Lymphocyte % 36.6 % (19-41); Mean Corp Hgb Conc 33.1 g/gl (32-36); Mean Corpuscular Hgb 28.9 pg (27.0-32.0); Mean Corpuscular Volume 87.4 fL (81-99); Monocyte# 0.73 X10^3/uL; Monocyte% 10.9 % (0-10); Neutrophil # 3.35 X10^3/uL (2.7-7.7); POSITIVE COUNT NO; POSITIVE DIFFERENTIAL NO; POSITIVE MORPHOLOGY NO; Platelet Count 368 K/mm3 (150-450); RBC Distribution Width CV 14.3 % (11.6-14.6); RBC Distribution Width SD 44.9 fl (35.1-43.9); Red Blood Count 4.19 M/mm3 (4.2-5.4); White Blood Count 6.7 K/mm3 (4.4-11.0)
[2017-09-02 07:34] LABS: Anion Gap 8 (5-15); BUN 8 mg/dL (7-18); BUN/Creat Ratio 13.2 RATIO (10-20); Calcium,Total 8.6 mg/dL (8.5-10.1); Chloride 101 mmol/L (98-107); Creatinine, Serum 0.61 mg/dL (0.55-1.02); EST Glomerular Filtration Rate 111 mL/min (>60); Est Glom Filt Rate - Afr Amer 134 mL/min (>60); Estimated Creatinine Clearance 99.28 ml/min; Glucose 146 mg/dL (74-106); Potassium 4.1 mmol/L (3.5-5.1); Sodium Level 137 mmol/L (136-145)
[2017-09-02 08:30] VITALS: BP 116/71; PULSE 87; RESP 18; TEMP 37.3; O2SAT 94
[2017-09-02] MEDS: Lisinopril 20 MG Tablet PO (08:30)
[2017-09-02] MEDS: Docusate Sodium 100 MG Capsule PO ×2 (08:31→21:29)
[2017-09-02] MEDS: Nystatin Powder 15gm Bottle 1 APPLIC TOPICAL ×2 (08:31→21:29)
[2017-09-02] MEDS: Enoxaparin 40 MG/0.4 ML Syringe SC (08:31)
[2017-09-02] MEDS: levoFLOXacin IV 500 MG/100 ML BAG 100 MG IV (11:06)
[2017-09-02] MEDS: Insulin Lispro 100 UNIT/ML INSULN.PEN SC ×3 (11:24→21:28)
--- NOTE | 2017-09-02 11:58 | PCM.PROGNOTE ---
Patient Problems: Active and Suspected Problems Cellulitis (Acute) Subjective: Chief complaint: Follow-up after admission for left breast incision breakdown/postoperative wound infection/cellulitis. Patient seen and examined. No acute events overnight. She has no significant complaints. She started taking pain meds for the left breast pain and she mentioned that she was able to sleep. She denies fever chills. Her vital signs are stable. - Physical Exam General: Alert, Oriented x3, Cooperative, No apparent distress HEENT: Atraumatic, PERRLA, EOMI Oral: Moist Mucosa, No Gingival or Mucosal Lesions/ Ulcerations Neck: Supple, No JVD, Negative Carotid Bruits, Trachea Midline, Thyroid Normal Size and Texture Lungs: Clear to auscultation, Normal air movement, No rhonchi, No wheeze, No rales Cardiovascular: Regular rate, Regular Rhythm, Normal S1, Normal S2, No murmurs Abdomen: Bowel Sounds Present, Soft, Non Tender, Non-Distended, No Hepato-splenomegaly, Obese Extremities: No clubbing, No cyanosis, No edema Skin: No rashes, Ulcer/ Wound Neurological: Cranial nerves II-XII grossly intact, Motor Exam 5/5 strength throughout Psych/Mental Status: Normal Affect, Appropriate, Alert and oriented to time, place, person, mood and affect Vital Signs Temp Pulse Resp BP Pulse Ox 99.2 F H 87 18 116/71 94 09/02/17 08:30 09/02/17 08:30 09/02/17 08:30 09/02/17 08:30 09/02/17 08:30 Oxygen Delivery Method Room Air Weight: 276 lb 0.3 oz Body Mass Index (BMI) 45.9 Intake and Output for Last 24 Hours 08/31/17 09/01/17 09/02/17 23:59 23:59 23:59 Intake Total 2415 / 2415 1659 / 1659 692.1 / 692.1 Balance 2415 / 2415 1659 / 1659 692.1 / 692.1 Microbiology Past 72 Hours 08/31/17 00:55 Gram Stain - Final Wound - Breast Wound Culture - Preliminary GPC Poss Enterococcus sp Laboratory Tests Past 24 Hrs 09/02/17 09/02/17 06:04 06:15 WBC 6.7 RBC 4.19 L Hgb 12.1 Hct 36.6 L MCV 87.4 MCH 28.9 MCHC 33.1 RDW 14.3 RDW Differential 44.9 H Plt Count 368 MPV 9.0 Immature Gran % (Auto) 0.100 Neut % (Auto) 50.0 Lymph % (Auto) 36.6 [place] % (Auto) 10.9 H Eos % (Auto) 2.1 Baso % (Auto) 0.3 Absolute Neuts (auto) 3.4 Absolute Lymphs (auto) 2.45 Total Counted Not Reportable Sodium 137 Potassium 4.1 Chloride 101 Carbon Dioxide 28.0 Anion Gap 8 BUN 8 Creatinine 0.61 Estim Creat Clear Calc 99.28 Est GFR (MDRD) Af Amer 134 Est GFR (MDRD) Non-Af 111 BUN/Creatinine Ratio 13.2 Glucose 146 H Calcium 8.6 POC Glucose 09/02/17 09/01/17 09/01/17 06:55 22:12 16:51 POC Glucose 147 H 169 H 146 H 09/01/17 11:49 POC Glucose 181 H Medical Necessity - Tobacco Use Smoking Status: Never smoker Assessment/Plan Active and Suspected Problems Cellulitis (Acute) This is a 52 years old female patient presented to the emergency room because of postoperative wound drainage and bloody discharge and she was found to have postoperative nonhealing surgical wound of the left breast with wound dehiscence and surrounding cellulitis in context of recent history bilateral breast reduction mammoplasty on August 09, 2017. #1 postoperative nonhealing infected surgical wound/wound dehiscence/surrounding cellulitis: She is on IV Zosyn and Levaquin. Her vital signs are stable, afebrile. No leukocytosis. Blood culture showed no growth in 48 hours. Wound culture revealed group G Streptococcus and gram-positive rods, final is pending. [facility] is on the case. Plan to continue same treatment. #2 type 2 diabetes mellitus: Blood sugar stable, continue ADA diet, Accu-Cheks, and systolic scale. #3 hypertension: Blood pressure stable, continue lisinopril and IV hydralazine as needed. #4 hypothyroidism: Continue [place] Thyroid. #5 chronic iron deficiency anemia: Hemoglobin and hematocrit are stable, continue iron supplement. #6 DVT prophylaxis: Subcu Lovenox. This note was generated with [employer] dictation software. It may contain incorrect words, spelling, and punctuation that were not noted in checking the note before signing. Code Visit Inpatient E&M: 43746 Subs Hosp L2
--- NOTE | 2017-09-02 12:01 | PN_ITS ---
Patient Problems: Active and Suspected Problems Cellulitis (Acute) Subjective: Chief complaint: Follow-up after admission for left breast incision breakdown/ postoperative wound infection/cellulitis. Patient seen and examined. No acute events overnight. She has no significant complaints. She started taking pain meds for the left breast pain and she mentioned that she was able to sleep. She denies fever chills. Her vital signs are stable. - Physical Exam General: Alert, Oriented x3, Cooperative, No apparent distress HEENT: Atraumatic, PERRLA, EOMI Oral: Moist Mucosa, No Gingival or Mucosal Lesions/ Ulcerations Neck: Supple, No JVD, Negative Carotid Bruits, Trachea Midline, Thyroid Normal Size and Texture Lungs: Clear to auscultation, Normal air movement, No rhonchi, No wheeze, No rales Cardiovascular: Regular rate, Regular Rhythm, Normal S1, Normal S2, No murmurs Abdomen: Bowel Sounds Present, Soft, Non Tender, Non-Distended, No Hepato- splenomegaly, Obese Extremities: No clubbing, No cyanosis, No edema Skin: No rashes, Ulcer/ Wound Neurological: Cranial nerves II-XII grossly intact, Motor Exam 5/5 strength throughout Psych/Mental Status: Normal Affect, Appropriate, Alert and oriented to time, place, person, mood and affect Vital Signs Temp Pulse Resp BP Pulse Ox 99.2 F H 87 18 116/71 94 09/02/17 08:30 09/02/17 08:30 09/02/17 08:30 09/02/17 08:30 09/02/17 08:30 Oxygen Delivery Method Room Air Weight: 276 lb 0.3 oz Body Mass Index (BMI) 45.9 Intake and Output for Last 24 Hours 08/31/17 09/01/17 09/02/17 23:59 23:59 23:59 Intake Total 2415 / 2415 1659 / 1659 692.1 / 692.1 Balance 2415 / 2415 1659 / 1659 692.1 / 692.1 Microbiology Past 72 Hours 08/31/17 00:55 Gram Stain - Final Wound - Breast Wound Culture - Preliminary GPC Poss Enterococcus sp Laboratory Tests Past 24 Hrs 09/02/17 09/02/17 06:04 06:15 WBC 6.7 RBC 4.19 L Hgb 12.1 Hct 36.6 L MCV 87.4 MCH 28.9 MCHC 33.1 RDW 14.3 RDW Differential 44.9 H Plt Count 368 MPV 9.0 Immature Gran % (Auto) 0.100 Neut % (Auto) 50.0 Lymph % (Auto) 36.6 [place] % (Auto) 10.9 H Eos % (Auto) 2.1 Baso % (Auto) 0.3 Absolute Neuts (auto) 3.4 Absolute Lymphs (auto) 2.45 Total Counted Not Reportable Sodium 137 Potassium 4.1 Chloride 101 Carbon Dioxide 28.0 Anion Gap 8 BUN 8 Creatinine 0.61 Estim Creat Clear Calc 99.28 Est GFR (MDRD) Af Amer 134 Est GFR (MDRD) Non-Af 111 BUN/Creatinine Ratio 13.2 Glucose 146 H Calcium 8.6 POC Glucose 09/02/17 09/01/17 09/01/17 06:55 22:12 16:51 POC Glucose 147 H 169 H 146 H 09/01/17 11:49 POC Glucose 181 H Medical Necessity - Tobacco Use Smoking Status: Never smoker Assessment/Plan Active and Suspected Problems Cellulitis (Acute) This is a 52 years old female patient presented to the emergency room because of postoperative wound drainage and bloody discharge and she was found to have postoperative nonhealing surgical wound of the left breast with wound dehiscence and surrounding cellulitis in context of recent history bilateral breast reduction mammoplasty on August 09, 2017. #1 postoperative nonhealing infected surgical wound/wound dehiscence/ surrounding cellulitis: She is on IV Zosyn and Levaquin. Her vital signs are stable, afebrile. No leukocytosis. Blood culture showed no growth in 48 hours. Wound culture revealed group G Streptococcus and gram-positive rods, final is pending. [facility] is on the case. Plan to continue same treatment. #2 type 2 diabetes mellitus: Blood sugar stable, continue ADA diet, Accu-Cheks, and systolic scale. #3 hypertension: Blood pressure stable, continue lisinopril and IV hydralazine as needed. #4 hypothyroidism: Continue [place] Thyroid. #5 chronic iron deficiency anemia: Hemoglobin and hematocrit are stable, continue iron supplement. #6 DVT prophylaxis: Subcu Lovenox. This note was generated with [employer] dictation software. It may contain incorrect words, spelling, and punctuation that were not noted in checking the note before signing. Code Visit Inpatient E&M: 97483 Subs Hosp L2
[2017-09-02 12:21] LABS: Bedside Glucose 173 mg/dL (70-110)
[2017-09-02 14:20] VITALS: BP 102/61; PULSE 90; RESP 16; TEMP 37.1; O2SAT 97
[2017-09-02 16:15] LABS: Bedside Glucose 171 mg/dL (70-110)
[2017-09-02] MEDS: oxyCODONE 5 MG Tablet PO (17:57)
[2017-09-02] MEDS: diazePAM 5 MG Tablet PO (17:58)
[2017-09-02 20:20] VITALS: BP 95/57; PULSE 89; RESP 16; TEMP 36.8; O2SAT 97
[2017-09-02] MEDS: Pantoprazole Sodium 40 MG Tablet PO (21:29)
[2017-09-02] MEDS: Ferrous Sulfate 325 MG Tablet PO (21:29)
[2017-09-02 22:00] LABS: Bedside Glucose 231 mg/dL (70-110)
--- NOTE | 2017-09-02 23:08 | PN.SURG_ITS ---
Patient Problems: Active and Suspected Problems Cellulitis (Acute) Subjective: Postop #24 Patient is having wound pain. - Physical Exam General: Alert, Oriented x3 HEENT: PERRLA, EOMI Neck: Supple Skin: Ulcer/ Wound - Breasts are soft and symmetrical. Nipples are viable. On the left breast at the Tzone is a nonhealing wound measuring 15 x 4 cm. Some granulation tissue is seen. Surrounding skin is not macerated. Some periwound rash present probably from recent drainage. No purulent drainage noted. Minimal cellulitis noted. Aquacel Silver dressing applied. On the right breast at the Tzone is a small area of partial thickness injury. Measures 2 x 1 cm. Will also dress with Aquacel Silver to help with drainage to keep the surrounding skin dry. Lymphatic: - - no axillary adenopathy. Neurological: Cranial nerves II-XII grossly intact Psych/Mental Status: Normal Affect, Appropriate Vital Signs Temp Pulse Resp BP Pulse Ox 98.2 F 89 16 95/57 L 97 09/02/17 20:20 09/02/17 20:20 09/02/17 20:20 09/02/17 20:20 09/02/17 20:20 Oxygen Delivery Method Room Air Weight: 276 lb 0.3 oz Body Mass Index (BMI) 45.9 Intake and Output for Last 24 Hours 08/31/17 09/01/17 09/02/17 23:59 23:59 23:59 Intake Total 2415 / 2415 1659 / 1659 1804.1 / 1804.1 Balance 2415 / 2415 1659 / 1659 1804.1 / 1804.1 Microbiology Past 72 Hours 08/31/17 00:55 Gram Stain - Final Wound - Breast Wound Culture - Preliminary GPC Poss Enterococcus sp Laboratory Tests Past 24 Hrs 09/02/17 09/02/17 06:04 06:15 WBC 6.7 RBC 4.19 L Hgb 12.1 Hct 36.6 L MCV 87.4 MCH 28.9 MCHC 33.1 RDW 14.3 RDW Differential 44.9 H Plt Count 368 MPV 9.0 Immature Gran % (Auto) 0.100 Neut % (Auto) 50.0 Lymph % (Auto) 36.6 [place] % (Auto) 10.9 H Eos % (Auto) 2.1 Baso % (Auto) 0.3 Absolute Neuts (auto) 3.4 Absolute Lymphs (auto) 2.45 Total Counted Not Reportable Sodium 137 Potassium 4.1 Chloride 101 Carbon Dioxide 28.0 Anion Gap 8 BUN 8 Creatinine 0.61 Estim Creat Clear Calc 99.28 Est GFR (MDRD) Af Amer 134 Est GFR (MDRD) Non-Af 111 BUN/Creatinine Ratio 13.2 Glucose 146 H Calcium 8.6 POC Glucose 09/02/17 09/02/17 09/02/17 21:21 16:08 11:24 POC Glucose 231 H 171 H 173 H 09/02/17 06:55 POC Glucose 147 H Medical Necessity - Tobacco Use Smoking Status: Never smoker Assessment/Plan Active and Suspected Problems Cellulitis (Acute) 1. Nonhealing surgical wound left breast with cellulitis. 2. Bilateral macromastia. 3. Neck pain. 4. Thoracic back pain. 6. Bilateral shoulder pain from the shoulder grooving from the way to the breast on her bra straps. 6. Inframammary intertrigo. 7. Family history of breast cancer. 8. s/p bilateral breast reduction mammaplasty. Appreciate assistance from Hospitalist Group and General Surgery. Wounds are stable at the present time. Continue Aquacel Silver dressing changes daily. No urgent need for surgical intervention at this time. Reassured patient that wounds will heal with wound care, antibiotics, and nutrition. In future, if wound care becomes problematic, can proceed with delayed closure with skin grafting. Continue IV Zosyn and Levaquin. Wound cultures show possible Enterococcus. Await further ID and sensitivity. The previous cultures from the office showed Staphylococcus aureus, Serratia marcescens, and Anaerobes. Will determine prior to discharge regarding continuing oral antibiotics or placing a PICC line and proceeding with IV antibiotics at home. Infectious Diseases to evaluate prior to discharge. When she was walking, she noticed increased swelling. When she ambulates today , I told her to wear a compression NISHANT wrap to help minimize the swelling. Prealbumin on 08/10/17 was 20.5. Encourage nutritional supplementation with protein to help the healing process. After discharge, followup in office later in week. May have her go to the Wound Center as well.
[2017-09-03] MEDS: oxyCODONE 5 MG Tablet PO (02:11)
[2017-09-03 02:20] VITALS: BP 120/71; PULSE 77; RESP 18; TEMP 36.8; O2SAT 97
[2017-09-03 06:22] LABS: Anion Gap 10 (5-15); BUN 9 mg/dL (7-18); BUN/Creat Ratio 14.3 RATIO (10-20); Calcium,Total 8.6 mg/dL (8.5-10.1); Chloride 102 mmol/L (98-107); Creatinine, Serum 0.63 mg/dL (0.55-1.02); EST Glomerular Filtration Rate 106 mL/min (>60); Est Glom Filt Rate - Afr Amer 128 mL/min (>60); Estimated Creatinine Clearance 96.13 ml/min; Glucose 133 mg/dL (74-106); Sodium Level 139 mmol/L (136-145)
[2017-09-03 06:28] LABS: Absolute Lymphocyte Count 2.84 X10^3/ul (0.83-4.51); Absolute Neutrophil Count 2.9 X10^3/uL (2.0-7.7); Basophil# 0.04 X10^3/uL; Basophil% 0.6 % (0-1); Eosinophil# 0.16 X10^3/uL; Eosinophils% 2.5 % (0-5); Hematocrit 36.3 % (37-47); Hemoglobin 11.9 g/dl (12.0-15.0); Lymphocyte # 2.84 X10^3/ul (4.0); Lymphocyte % 43.6 % (19-41); Mean Corp Hgb Conc 32.8 g/gl (32-36); Mean Corpuscular Hgb 28.7 pg (27.0-32.0); Mean Corpuscular Volume 87.7 fL (81-99); Monocyte# 0.61 X10^3/uL; Monocyte% 9.4 % (0-10); Neutrophil # 2.86 X10^3/uL (2.7-7.7); Neutrophil % 43.7 % (47-70); Platelet Count 355 K/mm3 (150-450); RBC Distribution Width CV 14.4 % (11.6-14.6); RBC Distribution Width SD 45.3 fl (35.1-43.9); Red Blood Count 4.14 M/mm3 (4.2-5.4); White Blood Count 6.5 K/mm3 (4.4-11.0)
[2017-09-03] MEDS: Piperacil/Tazobactam 3.375 GM/50 ML ML IV (06:33)
[2017-09-03] MEDS: Thyroid 60 MG Tablet 90 MG PO (06:33)
[2017-09-03 06:37] LABS: POSITIVE COUNT NO; POSITIVE DIFFERENTIAL NO; POSITIVE MORPHOLOGY NO
[2017-09-03 06:40] LABS: Bedside Glucose 133 mg/dL (70-110)
[2017-09-03 08:30] VITALS: BP 120/74; PULSE 88; RESP 18; TEMP 36.8; O2SAT 96
[2017-09-03] MEDS: Lisinopril 20 MG Tablet PO (08:32)
[2017-09-03] MEDS: Docusate Sodium 100 MG Capsule PO (08:32)
[2017-09-03] MEDS: Enoxaparin 40 MG/0.4 ML Syringe SC (08:33)
[2017-09-03] MEDS: Nystatin Powder 15gm Bottle 1 APPLIC TOPICAL (08:33)
--- NOTE | 2017-09-03 08:43 | SLEEP ---
Seen patient, she stated she has never been tested or had any concerns arise about sleep related breathing disorders. I explained the importance of getting screened and left pt with a brochure of information. Questions were answered and patient verbalized understanding.
[2017-09-03] MEDS: Insulin Lispro 100 UNIT/ML INSULN.PEN SC ×2 (10:54→15:52)
--- NOTE | 2017-09-03 11:14 | NURSING ---
wound photo: right breast
--- NOTE | 2017-09-03 11:15 | NURSING ---
wound photo: left breast
--- NOTE | 2017-09-03 12:06 | PCM.HP.ID ---
Problem List (1) Cellulitis Status: Acute Reason for Consult: cellulitis Consulted by: Dr. Stock History of Present Illness: The patient is a 52 year old F who underwent bilat breast reduction surgery by Dr. Carson in early August who presented with L breast redness, wound dehiscence, and purulent/bloody drainage. Did fine for 2 weeks after surgery. Drains were removed, and then she noticed some redness under L breast. Wound swab 08/22 was done, and she was started on levaquin. On 08/28, noticed spreading redness and some green drainage. Had been on abx for just over a week at that point. On 08/29 had blood start draining from surg site. No fever or chills. Told to go to ED. Given vanc/clinda, admitted on zosyn/levaquin. Surgery following. Redness is better, feeling better. Reports tolerating bactrim in past with no issue. Full ROS performed and neg except as noted above. - Medical History Past Medical History (Chronic Problems): Chronic Problems Intertrigo (Chronic) inframammary intertrigo Family history of breast cancer (Chronic) Chronic pain in shoulder (Chronic) bilateral shoulder pain from the shoulder grooving from the weight of the breasts on her bra straps Chronic midline thoracic back pain (Chronic) Chronic neck pain (Chronic) Hypertrophy of breast (Chronic) Allergies/Adverse Reactions: Allergies adhesive tape Adverse Reaction (Verified 08/22/17 16:11) SKIN BREAKDOWN Home Medications: Ambulatory Orders Medication Instructions Recorded canagliflozin 100 mg tablet 100 mg PO QAM 07/29/17 cholecalciferol (vitamin D3) 5,000 5,000 unit PO QDAY 07/29/17 unit capsule ferrous sulfate 325 mg (65 mg 325 mg PO QHS tab 07/29/17 iron) tablet lisinopril 20 mg tablet 20 mg PO QDAY 07/29/17 omeprazole 40 mg-sodium 1 cap PO QDAY 07/29/17 bicarbonate 1.1 gram capsule thyroid (pork) 90 mg tablet 90 mg PO 0600 07/29/17 Diazepam [Valium] 5 mg PO BID PRN #10 tab 08/10/17 nystatin 100,000 unit/gram topical 1 applic TOPICAL BID #60 g 08/22/17 powder levofloxacin 500 mg tablet 500 mg PO QDAY #14 tab 08/25/17 Docusate Sodium [Colace] 100 mg PO BID 08/30/17 Metformin HCl [Glucophage] 1,000 mg PO BIDCM 08/30/17 - Social History SMOKING STATUS:: Never smoker Vital Signs Temp Pulse Resp BP Pulse Ox 98.3 F 88 18 120/74 96 09/03/17 08:30 09/03/17 08:30 09/03/17 08:30 09/03/17 08:30 09/03/17 08:30 Oxygen Delivery Method Room Air Weight: 125.2 kg Body Mass Index (BMI) 45.9 Microbiology Past 72 Hours 08/31/17 00:55 Gram Stain - Final Wound - Breast Wound Culture - Final Enterococcus faecalis Corynebacterium amycolatum Anaerobic Culture - Preliminary Checking for anaerobes, further studies to follow. Laboratory Tests Past 24 Hrs 09/03/17 09/03/17 05:15 05:15 WBC 6.5 RBC 4.14 L Hgb 11.9 L Hct 36.3 L MCV 87.7 MCH 28.7 MCHC 32.8 RDW 14.4 RDW Differential 45.3 H Plt Count 355 MPV 9.0 Immature Gran % (Auto) 0.200 Neut % (Auto) 43.7 L Lymph % (Auto) 43.6 H [place] % (Auto) 9.4 Eos % (Auto) 2.5 Baso % (Auto) 0.6 Absolute Neuts (auto) 2.9 Absolute Lymphs (auto) 2.84 Total Counted Not Reportable Sodium 139 Potassium 4.0 Chloride 102 Carbon Dioxide 27.0 Anion Gap 10 BUN 9 Creatinine 0.63 Estim Creat Clear Calc 96.13 Est GFR (MDRD) Af Amer 128 Est GFR (MDRD) Non-Af 106 BUN/Creatinine Ratio 14.3 Glucose 133 H Calcium 8.6 - Other Studies Radiology: [] reviewed Other Studies: [] Route of nutrition/ use of supplements: [] Nutritional Intake: [] IV Site: [] Mcneil Catheter: [] - Physical Exam General: Alert, Oriented x3, Cooperative, No apparent distress HEENT: Atraumatic, PERRLA, EOMI Neck: Supple, No Nodes Lungs: Clear to auscultation, Normal air movement Cardiovascular: Regular rate, Regular Rhythm, No murmurs Abdomen: Soft, Non Tender, Non-Distended Extremities: No edema Skin: - - R breast surgical site healing ok. L breast with large open wound on underside with small amount of purulence on lateral side. Resolving erythema in surrounding skin. IV Site: Peripheral, without redness Musculoskeletal: No Tenderness to Palpation of Joints or Extremities Neurological: Cranial nerves II-XII grossly intact - Assessment/Plan Antibiotics: [] Assessment/Plan: [] Active and Suspected Problems Cellulitis (Acute) L breast surg site infection - given report green and then bloody drainage, will order MRI to look for abscess/infected hematoma. 08/22 cxs grew MSSA, serratia, and anaerobes. Levaquin did not cover the anaerobes which may explain her worsening. Cxs here with strep, GPR, and enterococcus. Has been on improving on zosyn/levaquin. Abx this AM narrowed to ampicillin for enterococcus coverage, but I think we still need to treat for the serratia, MSSA, and anaerobes. Will change to bactrim and unasyn. If MRI shows no deeper pocket of infection, plan will be for discharge on po bactrim DS 1 tab bid and po augmentin 875mg bid for 10 more days with close surgical follow-up. Will follow. Thank you. D/w Dr. Stock and wound care nurse.
[2017-09-03] MEDS: Smz/Tmp Ds Tablet 1 TABLET PO (13:07)
--- NOTE | 2017-09-03 13:46 | PCM.DC ---
- Discharge Diagnoses Current Active Problems: Current Active and Chronic Problems Cellulitis (Acute) You will use the following diet at home:: Regular Discharge Activity: Return to Normal Activity Allergies/Adverse Reactions: Allergies adhesive tape Adverse Reaction (Verified 08/22/17 16:11) SKIN BREAKDOWN Medications to take at Discharge canagliflozin 100 mg tablet 100 mg PO QAM 07/29/17 cholecalciferol (vitamin D3) 5,000 unit capsule 5,000 unit PO QDAY 07/29/17 ferrous sulfate 325 mg (65 mg iron) tablet 325 mg PO QHS tab 07/29/17 lisinopril 20 mg tablet 20 mg PO QDAY 07/29/17 omeprazole 40 mg-sodium bicarbonate 1.1 gram capsule 1 cap PO QDAY 07/29/17 thyroid (pork) 90 mg tablet 90 mg PO 0600 07/29/17 Diazepam [Valium] 5 mg PO BID PRN #10 tab 08/10/17 nystatin 100,000 unit/gram topical powder 1 applic TOPICAL BID #60 g 08/22/17 Docusate Sodium [Colace] 100 mg PO BID 08/30/17 Metformin HCl [Glucophage] 1,000 mg PO BIDCM 08/30/17 Amoxicillin/Potassium Clav [Augmentin 875-125 Tablet] 1 ea PO BID 10 Days tab 09/03/17 Smz/Tmp Ds [Bactrim Ds] 1 tab PO BIDCM #20 tab 09/03/17 The following prescriptions were given: Amoxicillin/Potassium Clav [Augmentin 875-125 Tablet] 1 ea PO BID 10 Days tab Smz/Tmp Ds [Bactrim Ds] 1 tab PO BIDCM #20 tab Primary Care Physician: Terell Cerna,Out of [Primary Care Provider] - Within 2 Weeks Proposed Discharge Date: 09/03/17
--- NOTE | 2017-09-03 13:48 | PCM.DC.SUM ---
Discharge Date and Diagnosis Date of Admission: 08/30/17 Date of Discharge: 09/03/17 - Primary Discharge Diagnosis Active and Suspected Problems Cellulitis (Acute) - Secondary Discharge Diagnosis Chronic Problems Intertrigo (Chronic) inframammary intertrigo Family history of breast cancer (Chronic) Chronic pain in shoulder (Chronic) bilateral shoulder pain from the shoulder grooving from the weight of the breasts on her bra straps Chronic midline thoracic back pain (Chronic) Chronic neck pain (Chronic) Hypertrophy of breast (Chronic) Hospital Course and Treatment Imaging Results: 09/03/17 11:54 Breast w/o and/or W Cont Bilat [MRI] Routine Consultations 08/31/17 07:49 Consult: Onc/Wound/chassis inspector Routine Comment: Summary of Care Provided: This is a 52 years old female patient presented to the emergency room because of postoperative wound drainage and bloody discharge and she was found to have postoperative nonhealing surgical wound of the left breast with wound dehiscence and surrounding cellulitis in context of recent history bilateral breast reduction mammoplasty on August 09, 2017. 08/22 cxs grew MSSA, serratia, and anaerobes. Cultures on 08/30 grew strep, GPR, cultures on 08/31 grew Corynebacterium and enterococcus . Infectious Disease was consulted and they recommended change to Bactrim and Unasyn, was ultimately discharged on p.o. Bactrim and Augmentin. Follow-up with Dr. Carson as an outpatient. Discharge Diet: No Restrictions Discharge Activity: Return to Normal Activity Home Medications: Medications to take at Discharge canagliflozin 100 mg tablet 100 mg PO QAM 07/29/17 cholecalciferol (vitamin D3) 5,000 unit capsule 5,000 unit PO QDAY 07/29/17 ferrous sulfate 325 mg (65 mg iron) tablet 325 mg PO QHS tab 07/29/17 lisinopril 20 mg tablet 20 mg PO QDAY 07/29/17 omeprazole 40 mg-sodium bicarbonate 1.1 gram capsule 1 cap PO QDAY 07/29/17 thyroid (pork) 90 mg tablet 90 mg PO 0600 07/29/17 Diazepam [Valium] 5 mg PO BID PRN #10 tab 08/10/17 nystatin 100,000 unit/gram topical powder 1 applic TOPICAL BID #60 g 08/22/17 Docusate Sodium [Colace] 100 mg PO BID 08/30/17 Metformin HCl [Glucophage] 1,000 mg PO BIDCM 08/30/17 Amoxicillin/Potassium Clav [Augmentin 875-125 Tablet] 1 ea PO BID 10 Days tab 09/03/17 Smz/Tmp Ds [Bactrim Ds] 1 tab PO BIDCM #20 tab 09/03/17 Following Prescrptions Were Given to Patient: Amoxicillin/Potassium Clav [Augmentin 875-125 Tablet] 1 ea PO BID 10 Days tab Smz/Tmp Ds [Bactrim Ds] 1 tab PO BIDCM #20 tab Primary Care Physician: Terell Cerna,Out of [Primary Care Provider] - Within 2 Weeks Medical Necessity - Tobacco Use Smoking Status: Never smoker Meaningful Use Info Meaningful Use Diagnoses (Choose all that apply): None applicable Code Visit Inpatient E&M: 27067 Disch Hosp
[2017-09-03 14:30] VITALS: BP 112/59; PULSE 89; RESP 18; TEMP 36.8; O2SAT 96
--- NOTE | 2017-09-03 15:00 | CT_ITS ---
STUDY: CT CHEST WITH CONTRAST REASON FOR EXAM: Female, 52 years old. Left breast abscess status post reduction RADIATION DOSAGE (If Supplied By Facility): CTDIvol = ( 20.36 ) mGy, DLP = ( 694.71 ) mGycm TECHNIQUE: Transaxial imaging was performed following intravenous administration of 100 ml of Isovue 300 contrast material. Individualized dose optimization techniques were used for this CT. COMPARISON: None. FINDINGS: The chest soft tissues minimally edematous. There is a focus of fat necrosis or lobule within the medial aspect of the left breast image #50 that measures 1.4 cm. There is no visualized evidence of large drainable fluid collection. There is a thickened appearance of the skin on the medial side of the left breast. The lungs are normal. There is no demonstrated pleural abnormality. Normal heart and pericardium. There is a precarinal lymph node measuring 2.3 cm. There is a right hilar lymph node measuring 1.6 x 1.7 cm. Normal enhanced pulmonary arteries. Normal aorta arch and descending thoracic aorta. There are multi-level degenerative changes of the thoracic spine. There is no demonstrated abnormality of the visualized upper abdomen. CT/Chest WITH Contrast IMPRESSION: There is a minimally edematous appearance of the breast soft tissue. There is a focus of fat lobule or fat necrosis within the medial aspect of the left breast measuring 1.4 cm. In the medial peripheral aspect of this soft tissues there is skin thickening suggestive of cellulitis without definitive drainable abscess. Recommend follow-up ultrasound. No evidence of acute focal infiltrate. Borderline atypical lymph node within the prevascular space and right hilum, recommend consideration for follow-up study this may be reactive but a follow-up study is suggested in 3-6 months to ensure stability. Electronically Signed: Marielle Ji MD at 15:40 EDT Tel , Service support ,
[2017-09-03 16:01] LABS: Bedside Glucose 181 mg/dL (70-110)
--- NOTE | 2017-09-03 17:52 | PCM.PN.SRG ---
Patient Problems: Active and Suspected Problems Cellulitis (Acute) Subjective: Postop #25 Patient is resting comfortably. She is anxious to go home. - Physical Exam General: Alert, Oriented x3 HEENT: PERRLA, EOMI Neck: Supple Skin: Ulcer/ Wound - Breasts are soft and symmetrical. Nipples are viable. On the left breast at the Tzone is a nonhealing wound measuring 15 x 4 cm. Some granulation tissue is seen. Surrounding skin is not macerated. Some periwound rash present probably from recent drainage. No purulent drainage noted. Minimal cellulitis noted. Aquacel Silver dressing applied. On the right breast at the Tzone is a small area of partial thickness injury. Measures 2 x 1 cm. Will also dress with Aquacel Silver to help with drainage to keep the surrounding skin dry. Lymphatic: - - no axillary adenopathy. Neurological: Cranial nerves II-XII grossly intact Psych/Mental Status: Normal Affect, Appropriate Vital Signs Temp Pulse Resp BP Pulse Ox 98.2 F 89 18 112/59 L 96 09/03/17 14:30 09/03/17 14:30 09/03/17 14:30 09/03/17 14:30 09/03/17 14:30 Oxygen Delivery Method Room Air Weight: 276 lb 0.3 oz Body Mass Index (BMI) 45.9 Intake and Output for Last 24 Hours 09/01/17 09/02/17 09/03/17 23:59 23:59 23:59 Intake Total 1659 / 1659 1804.1 / 1804.1 2097 Balance 1659 / 1659 1804.1 / 1804.1 2097 Microbiology Past 72 Hours 08/31/17 00:55 Gram Stain - Final Wound - Breast Wound Culture - Final Enterococcus faecalis Corynebacterium amycolatum Anaerobic Culture - Preliminary Checking for anaerobes, further studies to follow. Laboratory Tests Past 24 Hrs 09/03/17 09/03/17 05:15 05:15 WBC 6.5 RBC 4.14 L Hgb 11.9 L Hct 36.3 L MCV 87.7 MCH 28.7 MCHC 32.8 RDW 14.4 RDW Differential 45.3 H Plt Count 355 MPV 9.0 Immature Gran % (Auto) 0.200 Neut % (Auto) 43.7 L Lymph % (Auto) 43.6 H [place] % (Auto) 9.4 Eos % (Auto) 2.5 Baso % (Auto) 0.6 Absolute Neuts (auto) 2.9 Absolute Lymphs (auto) 2.84 Total Counted Not Reportable Sodium 139 Potassium 4.0 Chloride 102 Carbon Dioxide 27.0 Anion Gap 10 BUN 9 Creatinine 0.63 Estim Creat Clear Calc 96.13 Est GFR (MDRD) Af Amer 128 Est GFR (MDRD) Non-Af 106 BUN/Creatinine Ratio 14.3 Glucose 133 H Calcium 8.6 POC Glucose 09/03/17 09/03/17 09/02/17 15:51 06:33 21:21 POC Glucose 181 H 133 H 231 H Medical Necessity - Tobacco Use Smoking Status: Never smoker Assessment/Plan Active and Suspected Problems Cellulitis (Acute) 1. Nonhealing surgical wound left breast with cellulitis. 2. Bilateral macromastia. 3. Neck pain. 4. Thoracic back pain. 6. Bilateral shoulder pain from the shoulder grooving from the way to the breast on her bra straps. 6. Inframammary intertrigo. 7. Family history of breast cancer. 8. s/p bilateral breast reduction mammaplasty. Wounds are stable at the present time. Continue Aquacel Silver dressing changes daily. No urgent need for surgical intervention at this time. Reassured patient that wounds will heal with wound care, antibiotics, and nutrition. In future, if wound care becomes problematic, can proceed with delayed closure with skin grafting. Wound cultures show Enterococcus faecalis and Corynebacterium amycolatum. The previous cultures from the office showed Staphylococcus aureus, Serratia marcescens, and Anaerobes. Infectious Diseases evaluated the patient. They decided to send the patient home on Bactrim DS and Augmentin for 10 days and with close surgical followup. She already has pain medication at home. Continue NISHANT wrap for compression. Ct Chest was done today. It showed a minimally edematous appearance of the breast soft tissue. There is a focus of fat lobule or fat necrosis within the medial aspect of the left breast measuring 1.4 cm. In the medial peripheral aspect of this soft tissues there is skin thickening suggestive of cellulitis without definitive drainable abscess. Recommend follow-up ultrasound. No evidence of acute focal infiltrate. Borderline atypical lymph node within the prevascular space and right hilum, recommend consideration for follow-up study this may be reactive but a follow-up study is suggested in 3-6 months to ensure stability. Prealbumin on 08/10/17 was 20.5. Encourage nutritional supplementation with protein to help the healing process. After discharge, followup in office later in week. May have her go to the Wound Center as well.
[2017-09-04 00:31] LABS: Bedside Glucose 223 mg/dL (70-110)
== END 2017-09-03 18:38 | disposition home or self-care (01) | DRG 863 ==
LOC: ED 19:29 → MS3 23:39
PROVIDERS: Family Medicine; Hospitalist; Admitting Provider Internal Medicine; Emergency Provider Emergency Medicine; Visit Provider Internal Medicine
DX: T81.4XXA Infection following a procedure, initial encounter (principal); T81.31XA Disruption of external operation (surgical) wound, not elsewhere classified, initial encounter; Z68.42 Body mass index [BMI] 45.0-49.9, adult; N61.0 Mastitis without abscess; T81.89XA Other complications of procedures, not elsewhere classified, initial encounter; N64.1 Fat necrosis of breast; B95.61 Methicillin susceptible Staphylococcus aureus infection as the cause of diseases classified elsewhere; B96.89 Other specified bacterial agents as the cause of diseases classified elsewhere; B95.4 Other streptococcus as the cause of diseases classified elsewhere; B95.2 Enterococcus as the cause of diseases classified elsewhere; E11.9 Type 2 diabetes mellitus without complications; I10 Essential (primary) hypertension; E78.5 Hyperlipidemia, unspecified; E03.9 Hypothyroidism, unspecified; D50.9 Iron deficiency anemia, unspecified; L30.4 Erythema intertrigo; N62 Hypertrophy of breast; G89.29 Other chronic pain; M54.6 Pain in thoracic spine; M25.511 Pain in right shoulder; M25.512 Pain in left shoulder; M54.2 Cervicalgia; K21.9 Gastro-esophageal reflux disease without esophagitis; E66.01 Morbid (severe) obesity due to excess calories; Z79.84 Long term (current) use of oral hypoglycemic drugs; Z79.899 Other long term (current) drug therapy
CPT/HCPCS: 36415; 71260; 80048; 82962; 83036; 83735; 85025; 87040; 87070; 87075; 87076; 87077; 87186; 87205; 87640; 97802; 99285; J7030; J7040; J7050; Q9967; A4216; J0295

== ENCOUNTER 2017-10-28 10:15 | Outpatient (RCR) | payer OTHER, SELFPAY ==
[2017-10-14 10:56] VITALS: BP 188/81; PULSE 84; RESP 18; TEMP 36.6; BMI 45.2
--- NOTE | 2017-10-14 23:54 | PN.PCM_ITS ---
Type of Wound Date of Service: 10/14/17 Chief Complaint: Nonhealing ulcers left breast at [facility] and right breast at [facility]. History of Wound: Surgery 08/09/17 - Bilateral breast reduction mammaplasty. Postop there was some wound healing issues on the left breast at the [facility]. There was also a small wound developing on the right breast at the [facility]. Daily dressing changes with Silver dressings were started. Wound culture from showed Serratia marcescens, Staphylococcus aureus, Clostridium species, and Prevotella disiens. He was started on Levaquin. She had increased drainage on the left breast wound and was admitted on 08/30/17. Wound culture showed Enterococcus faecalis, Streptococcus group G, Corynebacterium amycolatum , Anaerobic cocci, Prevotella bivia, and Tissierella praeacuta. She was discharged on Bactrim and Augmentin and has finished them. Today she denies fever. Her appetite is good. Progress of Wound: Improved. - Physical Exam Vital Signs Temp Pulse Resp BP 97.9 F 84 18 188/81 H 10/14/17 10:56 10/14/17 10:56 10/14/17 10:56 10/14/17 10:56 Wound Measurements and Assessment WC - Nurse 1 - General Ulcer Measurement Start: 10/14/17 10:48 Freq: Status: Active Protocol: Activity Type Activity Date Activity User E-Sign Co-Sign Detail Recorded Client Recorded Date Recorded By Document 10/14/17 10:56 [facility] [id number] 10/14/17 11:02 [facility] 10/14/17 10:56 Wound Center Nurse 1 [Ulcer Assessment] #1- RT BREAST -Combined with other wound No -Current Size (cm) - Length 0.7 -Current Size (cm) - Width 1.2 -Current Size (cm) - Depth 0.1 -Total Square Cm 0.84 -Date of Last Picture (Recall this 10/14/17 field) -Photo Taken Yes -Epithelialization Small 1-33% -Tunneling No -Undermining/Tunneling No -Circular Undermining No -Exudate Amt Small (1-33%) -Exudate Type Serosanguineous -Wound Margin Distinct, Outline Attached -Granulation Amt Large (67-100%) -Granulation Quality [place] -Slough/Fibrin Yes -Necrosis Amt Small (1-33%) -Necrotic Tissue Type Adherent Slough -Structure Exposed None/Limited to Skin Breakdown -Texture (Torri-wound Skin Appearance) Scarring -Moisture (Torri-wound Skin Appearance Assessed ) -Color (Torri-wound Skin Appearance) No Abnormality -Temperature (Torri-wound Skin No Abnormality Appearance) (Pt Warm) -Tenderness on Palpation (Torri-wound No Skin Appearance) -Ulcer Cleansing Rinsed/ Irrigated with Saline -Foul Odor after Cleansing No -Anesthetic Used 4% Lidocaine Solution #2- LT BREAST -Combined with other wound No -Current Size (cm) - Length 3.0 -Current Size (cm) - Width 8.9 -Current Size (cm) - Depth 0.2 -Total Square Cm 26.70 -Date of Last Picture (Recall this 10/14/17 field) -Photo Taken Yes -Epithelialization Small 1-33% -Tunneling No -Undermining/Tunneling No -Circular Undermining No -Exudate Amt Small (1-33%) -Exudate Type Serosanguineous -Wound Margin Distinct, Outline Attached -Granulation Amt Large (67-100%) -Granulation Quality Red -Slough/Fibrin Yes -Necrosis Amt Small (1-33%) -Necrotic Tissue Type Adherent Slough -Structure Exposed Fat Layer Exposed -Texture (Torri-wound Skin Appearance) Scarring -Moisture (Torri-wound Skin Appearance Assessed ) -Color (Torri-wound Skin Appearance) Assessed -Temperature (Torri-wound Skin No Abnormality Appearance) (Pt Warm) -Tenderness on Palpation (Torri-wound No Skin Appearance) -Ulcer Cleansing Rinsed/ Irrigated with Saline -Foul Odor after Cleansing No -Anesthetic Used 4% Lidocaine Solution WC - Nurse 2 - General Ulcer CM Notes Start: 10/14/17 10:48 Freq: Status: Active Protocol: Activity Type Activity Date Activity User E-Sign Co-Sign Detail Recorded Client Recorded Date Recorded By Document 10/14/17 11:13 BRIONNA [id number] 10/14/17 11:15 BRIONNA 10/14/17 11:13 Wound Center Nurse 2 [Procedure/Treatment] #1- RT BREAST -Time 11:14 -Correct Patient Yes -Correct Side, Site, Position Yes -Correct Procedure Yes -Procedure Performed Yes -Type of Procedure Debridement -Clinical Debridement Subcutaneous -Post Debridement Size (cm) - Length 0.8 -Post Debridement Size (cm) - Width 1.2 -Post Debridement Size (cm) - Depth 0.1 -Total Square Cm 0.96 -Wound/Ulcer Outcome Not Healed -Ulcer Cleansing Rinsed/ Irrigated with Saline -Foul Odor after Cleansing No -Bioengineered Tissue No -Bleeding Controlled with Pressure -Treatment Response Procedure Tolerated Well #2- LT BREAST -Time 11:14 -Correct Patient Yes -Correct Side, Site, Position Yes -Correct Procedure Yes -Procedure Performed Yes -Type of Procedure Debridement -Clinical Debridement Subcutaneous -Post Debridement Size (cm) - Length 3.0 -Post Debridement Size (cm) - Width 9 -Post Debridement Size (cm) - Depth 0.2 -Total Square Cm 27.0 -Wound/Ulcer Outcome Not Healed -Ulcer Cleansing Rinsed/ Irrigated with Saline -Foul Odor after Cleansing No -Bioengineered Tissue No -Bleeding Controlled with Pressure -Treatment Response Procedure Tolerated Well [See Physician Procedure note for Specifics] Pain Scale: 0-10 Numeric [Pain] -Is Patient Pain Free? Yes Debridement Note Post-Debridement Measurements/Treatment WC - Nurse 2 - General Ulcer CM Notes Start: 10/14/17 10:48 Freq: Status: Active Protocol: Activity Type Activity Date Activity User E-Sign Co-Sign Detail Recorded Client Recorded Date Recorded By Document 10/14/17 11:13 BRIONNA [id number] 10/14/17 11:15 BRIONNA 10/14/17 11:13 Wound Center Nurse 2 #1- RT BREAST -Time 11:14 -Correct Patient Yes -Correct Side, Site, Position Yes -Correct Procedure Yes -Procedure Performed Yes -Type of Procedure Debridement -Clinical Debridement Subcutaneous -Post Debridement Size (cm) - Length 0.8 -Post Debridement Size (cm) - Width 1.2 -Post Debridement Size (cm) - Depth 0.1 -Total Square Cm 0.96 -Wound/Ulcer Outcome Not Healed -Ulcer Cleansing Rinsed/ Irrigated with Saline -Foul Odor after Cleansing No -Bioengineered Tissue No -Bleeding Controlled with Pressure -Treatment Response Procedure Tolerated Well #2- LT BREAST -Time 11:14 -Correct Patient Yes -Correct Side, Site, Position Yes -Correct Procedure Yes -Procedure Performed Yes -Type of Procedure Debridement -Clinical Debridement Subcutaneous -Post Debridement Size (cm) - Length 3.0 -Post Debridement Size (cm) - Width 9 -Post Debridement Size (cm) - Depth 0.2 -Total Square Cm 27.0 -Wound/Ulcer Outcome Not Healed -Ulcer Cleansing Rinsed/ Irrigated with Saline -Foul Odor after Cleansing No -Bioengineered Tissue No -Bleeding Controlled with Pressure -Treatment Response Procedure Tolerated Well Pain Scale: 0-10 Numeric Is Patient Pain Free? Yes Wound debrided: #1 Right breast at [facility]. Laterality: Right Wound Grade/Stage: 2. Type of Debridement: Excisional debridement Anesthesia Used: 4% Lidocaine Solution Depth: Down to and including healthy tissue, in the subcutaneous layer Percentage of wound debrided: 100 Instrument Used: 3mm curette Tissue Removed: subcutaneous tissue. Severity: Fat Layer Exposed Amount of bleeding with debridement: Mild Bleeding Controlled with: Pressure Patient tolerated procedure well - Additional Wound Wound debrided: #2 Left breast at [facility]. Laterality: Left Wound Grade/Stage: 2. Type of Debridement: Excisional debridement Anesthesia Used: 4% Lidocaine Solution Depth: Down to and including healthy tissue, in the subcutaneous layer Percentage of wound debrided: 100 Instrument Used: 5mm curette Tissue Removed: subcutaneous tissue. Severity: Fat Layer Exposed Amount of bleeding with debridement: Mild Bleeding Controlled with: Pressure Patient tolerated procedure: Patient tolerated procedure well Assessment/Plan Assessment: 1. Nonhealing ulcer left breast at [facility]. 2. Nonhealing ulcer right breast at [facility]. 3. Bilateral macromastia. 4. Neck pain. 5. Thoracic back pain. 6. Bilateral shoulder pain from the shoulder grooving from the weight of her breasts on her bra straps. 7. Inframammary intertrigo. 8. Family history of breast cancer. 9. s/p bilateral breast reduction mammaplasty. Plan: Continue Silver dressing changes daily. The left breast ulcer is getting smaller. The right breast ulcer is an abrasion ulcer that had recently healed and has reopened. Encourage nutritional supplementation with protein to help the healing process. Keep head elevated. Discussed possible skin grafting. She would like to hold off on further surgery at this time and would like to have these ulcers heal with wound care. Followup 2 weeks.
[2017-10-28 10:40] VITALS: BP 116/81; PULSE 81; RESP 16; BMI 45.2
--- NOTE | 2017-10-28 19:35 | PCM.WC.PN ---
Type of Wound Date of Service: 10/28/17 Chief Complaint: Nonhealing ulcers left breast at [facility] and right breast at [facility]. History of Wound: Surgery 08/09/17 - Bilateral breast reduction mammaplasty. Postop there was some wound healing issues on the left breast at the [facility]. There was also a small wound developing on the right breast at the [facility] which has healed. Daily dressing changes with Silver dressings were started. Wound culture from 08/22/17 showed Serratia marcescens, Staphylococcus aureus, Clostridium species, and Prevotella disiens. He was started on Levaquin. She had increased drainage on the left breast wound and was admitted on 08/30/17. Wound culture showed Enterococcus faecalis, Streptococcus group G, Corynebacterium amycolatum, Anaerobic cocci, Prevotella bivia, and Tissierella praeacuta. She was discharged on Bactrim and Augmentin and has finished them. Today she denies fever. Her appetite is good. Progress of Wound: The left breast ulcer has improved. The right breast ulcer has healed. - Physical Exam Vital Signs Temp Pulse Resp BP 97.9 F 81 16 116/81 H 10/14/17 10:56 10/28/17 10:40 10/28/17 10:40 10/28/17 10:40 Wound Measurements and Assessment WC - Nurse 1 - General Ulcer Measurement Start: 10/14/17 10:48 Freq: Status: Active Protocol: Activity Type Activity Date Activity User E-Sign Co-Sign Detail Recorded Client Recorded Date Recorded By Document 10/28/17 10:40 [id number] 10/28/17 10:42 BRIONNA 10/28/17 10:40 Wound Center Nurse 1 [Ulcer Assessment] #1- RT BREAST -Combined with other wound No -Current Size (cm) - Length 0 -Current Size (cm) - Width 0 -Current Size (cm) - Depth 0 -Total Square Cm 0 -Photo Taken Yes -Epithelialization Large 67-100% #2- LT BREAST -Combined with other wound No -Current Size (cm) - Length 2.0 -Current Size (cm) - Width 5.9 -Current Size (cm) - Depth 0.1 -Total Square Cm 11.80 -Photo Taken No -Epithelialization Small 1-33% -Tunneling No -Undermining/Tunneling No -Circular Undermining No -Exudate Amt Medium (34-66%) -Exudate Type Serosanguineous -Wound Margin Flat & Intact -Granulation Amt Large (67-100%) -Granulation Quality Red -Slough/Fibrin Yes -Necrosis Amt Small (1-33%) -Necrotic Tissue Type Adherent Slough -Structure Exposed N/A -Texture (Torri-wound Skin Appearance) Assessed -Moisture (Torri-wound Skin Appearance Assessed ) Dry/Scaly -Color (Torri-wound Skin Appearance) Assessed -Temperature (Torri-wound Skin No Abnormality Appearance) (Pt Warm) -Tenderness on Palpation (Torri-wound No Skin Appearance) -Ulcer Cleansing Wound Cleanser -Foul Odor after Cleansing No -Anesthetic Used 5% Lidocaine Gel [Edema Assessment] -Lower Limb Edema Present NA - Nurse 2 - General Ulcer CM Notes Start: 10/14/17 10:48 Freq: Status: Active Protocol: Activity Type Activity Date Activity User E-Sign Co-Sign Detail Recorded Client Recorded Date Recorded By Document 10/28/17 10:42 [id number] 10/28/17 10:43 10/28/17 10:42 Wound Center Nurse 2 [Procedure/Treatment] #2- LT BREAST -Time 10:42 -Correct Patient Yes -Correct Side, Site, Position Yes -Correct Procedure Yes -Procedure Performed Yes -Type of Procedure Debridement -Clinical Debridement Subcutaneous -Post Debridement Size (cm) - Length 2 -Post Debridement Size (cm) - Width 6 -Post Debridement Size (cm) - Depth 0.2 -Total Square Cm 12 -Wound/Ulcer Outcome Not Healed -Ulcer Cleansing Rinsed/ Irrigated with Saline -Foul Odor after Cleansing No -Bioengineered Tissue No -Bleeding Controlled with Pressure -Treatment Response Procedure Tolerated Well [See Physician Procedure note for Specifics] Pain Scale: 0-10 Numeric [Pain] -Is Patient Pain Free? Yes Debridement Note Post-Debridement Measurements/Treatment - Nurse 2 - General Ulcer CM Notes Start: 10/14/17 10:48 Freq: Status: Active Protocol: Activity Type Activity Date Activity User E-Sign Co-Sign Detail Recorded Client Recorded Date Recorded By Document 10/14/17 11:13 [id number] 10/14/17 11:15 Document 10/28/17 10:42 [id number] 10/28/17 10:43 JF 10/14/17 10/28/17 11:13 10:42 Wound Center Nurse 2 #1- RT BREAST -Time 11:14 -Correct Patient Yes -Correct Side, Site, Position Yes -Correct Procedure Yes -Procedure Performed Yes -Type of Procedure Debridement -Clinical Debridement Subcutaneous -Post Debridement Size (cm) - Length 0.8 -Post Debridement Size (cm) - Width 1.2 -Post Debridement Size (cm) - Depth 0.1 -Total Square Cm 0.96 -Wound/Ulcer Outcome Not Healed -Ulcer Cleansing Rinsed/ Irrigated with Saline -Foul Odor after Cleansing No -Bioengineered Tissue No -Bleeding Controlled with Pressure -Treatment Response Procedure Tolerated Well #2- LT BREAST -Time 11:14 10:42 -Correct Patient Yes Yes -Correct Side, Site, Position Yes Yes -Correct Procedure Yes Yes -Procedure Performed Yes Yes -Type of Procedure Debridement Debridement -Clinical Debridement Subcutaneous Subcutaneous -Post Debridement Size (cm) - Length 3.0 2 -Post Debridement Size (cm) - Width 9 6 -Post Debridement Size (cm) - Depth 0.2 0.2 -Total Square Cm 27.0 12 -Wound/Ulcer Outcome Not Healed Not Healed -Ulcer Cleansing Rinsed/ Rinsed/ Irrigated with Irrigated with Saline Saline -Foul Odor after Cleansing No No -Bioengineered Tissue No No -Bleeding Controlled with Pressure Pressure -Treatment Response Procedure Procedure Tolerated Well Tolerated Well Pain Scale: 0-10 Numeric Is Patient Pain Free? Yes Yes Wound debrided: #1 Right breast at [facility]. Laterality: Right Wound Grade/Stage: 2. No debridement was completed today - the ulcer has healed. - Additional Wound Wound debrided: #2 Left breast at [facility]. Laterality: Left Wound Grade/Stage: 2. Type of Debridement: Excisional debridement Anesthesia Used: 4% Lidocaine Solution Depth: Down to and including healthy tissue, in the subcutaneous layer Percentage of wound debrided: 100 Instrument Used: 5mm curette Tissue Removed: subcutaneous tissue. Severity: Fat Layer Exposed Amount of bleeding with debridement: Mild Bleeding Controlled with: Pressure Patient tolerated procedure: Patient tolerated procedure well Assessment/Plan Assessment: 1. Nonhealing ulcer left breast at [facility]. 2. Ulcer right breast at [facility], healed. 3. Bilateral macromastia. 4. Neck pain. 5. Thoracic back pain. 6. Bilateral shoulder pain from the shoulder grooving from the weight of her breasts on her bra straps. 7. Inframammary intertrigo. 8. Family history of breast cancer. 9. s/p bilateral breast reduction mammaplasty. Plan: Continue Silver dressing changes daily. The left breast ulcer is getting smaller. The right breast ulcer has healed. Encourage nutritional supplementation with protein to help the healing process. Keep head elevated. Discussed possible skin grafting. She would like to hold off on further surgery at this time and would like to have these ulcers heal with wound care. Followup 2 weeks in the office. Followup 4 weeks at the wound center.
--- NOTE | 2017-10-29 17:15 | PN.PCM_ITS ---
Type of Wound Date of Service: 10/28/17 Chief Complaint: Nonhealing ulcers left breast at [facility] and right breast at [facility]. History of Wound: Surgery 08/09/17 - Bilateral breast reduction mammaplasty. Postop there was some wound healing issues on the left breast at the [facility]. There was also a small wound developing on the right breast at the [facility] which has healed. Daily dressing changes with Silver dressings were started. Wound culture from 08/22/17 showed Serratia marcescens, Staphylococcus aureus, Clostridium species, and Prevotella disiens. He was started on Levaquin. She had increased drainage on the left breast wound and was admitted on 08/30/17. Wound culture showed Enterococcus faecalis, Streptococcus group G, Corynebacterium amycolatum, Anaerobic cocci, Prevotella bivia, and Tissierella praeacuta. She was discharged on Bactrim and Augmentin and has finished them. Today she denies fever. Her appetite is good. Progress of Wound: The left breast ulcer has improved. The right breast ulcer has healed. - Physical Exam Vital Signs Temp Pulse Resp BP 97.9 F 81 16 116/81 H 10/14/17 10:56 10/28/17 10:40 10/28/17 10:40 10/28/17 10:40 Wound Measurements and Assessment WC - Nurse 1 - General Ulcer Measurement Start: 10/14/17 10:48 Freq: Status: Active Protocol: Activity Type Activity Date Activity User E-Sign Co-Sign Detail Recorded Client Recorded Date Recorded By Document 10/28/17 10:40 [id number] 10/28/17 10:42 BRIONNA 10/28/17 10:40 Wound Center Nurse 1 [Ulcer Assessment] #1- RT BREAST -Combined with other wound No -Current Size (cm) - Length 0 -Current Size (cm) - Width 0 -Current Size (cm) - Depth 0 -Total Square Cm 0 -Photo Taken Yes -Epithelialization Large 67-100% #2- LT BREAST -Combined with other wound No -Current Size (cm) - Length 2.0 -Current Size (cm) - Width 5.9 -Current Size (cm) - Depth 0.1 -Total Square Cm 11.80 -Photo Taken No -Epithelialization Small 1-33% -Tunneling No -Undermining/Tunneling No -Circular Undermining No -Exudate Amt Medium (34-66%) -Exudate Type Serosanguineous -Wound Margin Flat & Intact -Granulation Amt Large (67-100%) -Granulation Quality Red -Slough/Fibrin Yes -Necrosis Amt Small (1-33%) -Necrotic Tissue Type Adherent Slough -Structure Exposed N/A -Texture (Torri-wound Skin Appearance) Assessed -Moisture (Torri-wound Skin Appearance Assessed ) Dry/Scaly -Color (Torri-wound Skin Appearance) Assessed -Temperature (Torri-wound Skin No Abnormality Appearance) (Pt Warm) -Tenderness on Palpation (Torri-wound No Skin Appearance) -Ulcer Cleansing Wound Cleanser -Foul Odor after Cleansing No -Anesthetic Used 5% Lidocaine Gel [Edema Assessment] -Lower Limb Edema Present NA - Nurse 2 - General Ulcer CM Notes Start: 10/14/17 10:48 Freq: Status: Active Protocol: Activity Type Activity Date Activity User E-Sign Co-Sign Detail Recorded Client Recorded Date Recorded By Document 10/28/17 10:42 [id number] 10/28/17 10:43 10/28/17 10:42 Wound Center Nurse 2 [Procedure/Treatment] #2- LT BREAST -Time 10:42 -Correct Patient Yes -Correct Side, Site, Position Yes -Correct Procedure Yes -Procedure Performed Yes -Type of Procedure Debridement -Clinical Debridement Subcutaneous -Post Debridement Size (cm) - Length 2 -Post Debridement Size (cm) - Width 6 -Post Debridement Size (cm) - Depth 0.2 -Total Square Cm 12 -Wound/Ulcer Outcome Not Healed -Ulcer Cleansing Rinsed/ Irrigated with Saline -Foul Odor after Cleansing No -Bioengineered Tissue No -Bleeding Controlled with Pressure -Treatment Response Procedure Tolerated Well [See Physician Procedure note for Specifics] Pain Scale: 0-10 Numeric [Pain] -Is Patient Pain Free? Yes Debridement Note Post-Debridement Measurements/Treatment - Nurse 2 - General Ulcer CM Notes Start: 10/14/17 10:48 Freq: Status: Active Protocol: Activity Type Activity Date Activity User E-Sign Co-Sign Detail Recorded Client Recorded Date Recorded By Document 10/14/17 11:13 [id number] 10/14/17 11:15 Document 10/28/17 10:42 [id number] 10/28/17 10:43 JF 10/14/17 10/28/17 11:13 10:42 Wound Center Nurse 2 #1- RT BREAST -Time 11:14 -Correct Patient Yes -Correct Side, Site, Position Yes -Correct Procedure Yes -Procedure Performed Yes -Type of Procedure Debridement -Clinical Debridement Subcutaneous -Post Debridement Size (cm) - Length 0.8 -Post Debridement Size (cm) - Width 1.2 -Post Debridement Size (cm) - Depth 0.1 -Total Square Cm 0.96 -Wound/Ulcer Outcome Not Healed -Ulcer Cleansing Rinsed/ Irrigated with Saline -Foul Odor after Cleansing No -Bioengineered Tissue No -Bleeding Controlled with Pressure -Treatment Response Procedure Tolerated Well #2- LT BREAST -Time 11:14 10:42 -Correct Patient Yes Yes -Correct Side, Site, Position Yes Yes -Correct Procedure Yes Yes -Procedure Performed Yes Yes -Type of Procedure Debridement Debridement -Clinical Debridement Subcutaneous Subcutaneous -Post Debridement Size (cm) - Length 3.0 2 -Post Debridement Size (cm) - Width 9 6 -Post Debridement Size (cm) - Depth 0.2 0.2 -Total Square Cm 27.0 12 -Wound/Ulcer Outcome Not Healed Not Healed -Ulcer Cleansing Rinsed/ Rinsed/ Irrigated with Irrigated with Saline Saline -Foul Odor after Cleansing No No -Bioengineered Tissue No No -Bleeding Controlled with Pressure Pressure -Treatment Response Procedure Procedure Tolerated Well Tolerated Well Pain Scale: 0-10 Numeric Is Patient Pain Free? Yes Yes Wound debrided: #1 Right breast at [facility]. Laterality: Right Wound Grade/Stage: 2. No debridement was completed today - the ulcer has healed. - Additional Wound Wound debrided: #2 Left breast at [facility]. Laterality: Left Wound Grade/Stage: 2. Type of Debridement: Excisional debridement Anesthesia Used: 4% Lidocaine Solution Depth: Down to and including healthy tissue, in the subcutaneous layer Percentage of wound debrided: 100 Instrument Used: 5mm curette Tissue Removed: subcutaneous tissue. Severity: Fat Layer Exposed Amount of bleeding with debridement: Mild Bleeding Controlled with: Pressure Patient tolerated procedure: Patient tolerated procedure well Assessment/Plan Assessment: 1. Nonhealing ulcer left breast at [facility]. 2. Ulcer right breast at [facility], healed. 3. Bilateral macromastia. 4. Neck pain. 5. Thoracic back pain. 6. Bilateral shoulder pain from the shoulder grooving from the weight of her breasts on her bra straps. 7. Inframammary intertrigo. 8. Family history of breast cancer. 9. s/p bilateral breast reduction mammaplasty. Plan: Continue Silver dressing changes daily. The left breast ulcer is getting smaller. The right breast ulcer has healed. Encourage nutritional supplementation with protein to help the healing process. Keep head elevated. Discussed possible skin grafting. She would like to hold off on further surgery at this time and would like to have these ulcers heal with wound care. Followup 2 weeks in the office. Followup 4 weeks at the wound center.
== END 2017-11-05 23:59 ==
LOC: WC 10:15
PROVIDERS: Visit Provider Surgery
DX: L98.492 Non-pressure chronic ulcer of skin of other sites with fat layer exposed (principal); M54.6 Pain in thoracic spine; N62 Hypertrophy of breast; Z80.3 Family history of malignant neoplasm of breast; M25.512 Pain in left shoulder; M25.511 Pain in right shoulder
CPT/HCPCS: 11042; 11045; 99213; G0463

== ENCOUNTER 2017-11-25 08:03 | Outpatient (RCR) | payer OTHER, SELFPAY ==
[2017-11-06 00:13] VITALS: BP 116/81; PULSE 81; RESP 16; TEMP 36.6
[2017-11-25 10:34] VITALS: BP 118/63; PULSE 78; RESP 16; TEMP 36.4
--- NOTE | 2017-11-25 22:28 | PN.PCM_ITS ---
Type of Wound Date of Service: 11/25/17 Chief Complaint: Nonhealing ulcer left breast at [facility]. History of Wound: Surgery 08/09/17 - Bilateral breast reduction mammaplasty. Postop there was some wound healing issues on the left breast at the [facility]. There was also a small wound developing on the right breast at the [facility] which has healed. Daily dressing changes with Silver dressings were started. Wound culture from 08/22/17 showed Serratia marcescens, Staphylococcus aureus, Clostridium species, and Prevotella disiens. He was started on Levaquin. She had increased drainage on the left breast wound and was admitted on 08/30/17. Wound culture showed Enterococcus faecalis, Streptococcus group G, Corynebacterium amycolatum, Anaerobic cocci, Prevotella bivia, and Tissierella praeacuta. She was discharged on Bactrim and Augmentin and has finished them. Today she denies fever. Her appetite is good. Progress of Wound: Improved. - Physical Exam Vital Signs Temp Pulse Resp BP 97.5 F L 78 16 118/63 11/25/17 10:34 11/25/17 10:34 11/25/17 10:34 11/25/17 10:34 Wound Measurements and Assessment WC - Nurse 1 - General Ulcer Measurement Start: 11/25/17 10:33 Freq: Status: Active Protocol: Activity Type Activity Date Activity User E-Sign Co-Sign Detail Recorded Client Recorded Date Recorded By Document 11/25/17 10:34 [facility] [id number] 11/25/17 10:41 [facility] 11/25/17 10:34 Wound Center Nurse 1 [Ulcer Assessment] #2- LT BREAST -Combined with other wound No -Current Size (cm) - Length 2.4 -Current Size (cm) - Width 0.8 -Current Size (cm) - Depth 0.1 -Total Square Cm 1.92 -Date of Last Picture (Recall this 11/25/17 field) -Photo Taken Yes -Epithelialization Medium 34-66% -Tunneling No -Undermining/Tunneling No -Circular Undermining No -Exudate Amt None Present (0 %) -Wound Margin Distinct, Outline Attached -Granulation Amt Large (67-100%) -Granulation Quality Pale Red -Slough/Fibrin No -Necrosis Amt None Present (0 %) -Structure Exposed None/Limited to Skin Breakdown -Texture (Torri-wound Skin Appearance) Scarring -Moisture (Torri-wound Skin Appearance Dry/Scaly ) -Color (Torri-wound Skin Appearance) Assessed -Temperature (Torri-wound Skin No Abnormality Appearance) (Pt Warm) -Tenderness on Palpation (Torri-wound No Skin Appearance) -Ulcer Cleansing Rinsed/ Irrigated with Saline -Foul Odor after Cleansing No -Anesthetic Used 5% Lidocaine Gel - Nurse 2 - General Ulcer CM Notes Start: 11/25/17 10:33 Freq: Status: Active Protocol: Activity Type Activity Date Activity User E-Sign Co-Sign Detail Recorded Client Recorded Date Recorded By Document 11/25/17 11:23 [id number] 11/25/17 11:24 11/25/17 11:23 Wound Center Nurse 2 [Procedure/Treatment] -Time 11:23 -Correct Patient Yes -Correct Side, Site, Position Yes -Correct Procedure Yes -Procedure Performed Yes -Type of Procedure Debridement -Clinical Debridement Subcutaneous -Post Debridement Size (cm) - Length 2.5 -Post Debridement Size (cm) - Width 0.8 -Post Debridement Size (cm) - Depth 0.1 -Total Square Cm 2.00 -Wound/Ulcer Outcome Not Healed -Ulcer Cleansing Rinsed/ Irrigated with Saline -Foul Odor after Cleansing No -Bioengineered Tissue No -Bleeding Controlled with Pressure -Treatment Response Procedure Tolerated Well [See Physician Procedure note for Specifics] Pain Scale: 0-10 Numeric [Pain] -Is Patient Pain Free? Yes Debridement Note Post-Debridement Measurements/Treatment - Nurse 2 - General Ulcer CM Notes Start: 11/25/17 10:33 Freq: Status: Active Protocol: Activity Type Activity Date Activity User E-Sign Co-Sign Detail Recorded Client Recorded Date Recorded By Document 11/25/17 11:23 [email or web address] [id number] 11/25/17 11:24 11/25/17 11:23 Wound Center Nurse 2 #2- LT BREAST -Time 11:23 -Correct Patient Yes -Correct Side, Site, Position Yes -Correct Procedure Yes -Procedure Performed Yes -Type of Procedure Debridement -Clinical Debridement Subcutaneous -Post Debridement Size (cm) - Length 2.5 -Post Debridement Size (cm) - Width 0.8 -Post Debridement Size (cm) - Depth 0.1 -Total Square Cm 2.00 -Wound/Ulcer Outcome Not Healed -Ulcer Cleansing Rinsed/ Irrigated with Saline -Foul Odor after Cleansing No -Bioengineered Tissue No -Bleeding Controlled with Pressure -Treatment Response Procedure Tolerated Well Pain Scale: 0-10 Numeric Is Patient Pain Free? Yes Wound debrided: #2 Left breast at [facility]. Laterality: Left Wound Grade/Stage: 2. Type of Debridement: Excisional debridement Anesthesia Used: 4% Lidocaine Solution Depth: Down to and including healthy tissue, in the subcutaneous layer Percentage of wound debrided: 100 Instrument Used: 5mm curette Tissue Removed: subcutaneous tissue. Severity: Fat Layer Exposed Amount of bleeding with debridement: Mild Bleeding Controlled with: Pressure Patient tolerated procedure well Assessment/Plan Assessment: 1. Nonhealing ulcer left breast at [facility]. 2. Bilateral macromastia. 3. Neck pain. 4. Thoracic back pain. 5. Bilateral shoulder pain from the shoulder grooving from the weight of her breasts on her bra straps. 6. Inframammary intertrigo. 7. Family history of breast cancer. 8. s/p bilateral breast reduction mammaplasty. Plan: Continue Silver dressing changes daily. The left breast ulcer is getting much smaller. Encourage nutritional supplementation with protein to help the healing process. Keep head elevated. With the continued improvement in the healing of the ulcer, there will not be a need for a skin graft as I anticipate healing in the next 4 weeks. Followup 2 weeks in the office. Followup 4 weeks at the wound center.
== END 2017-12-06 23:59 ==
LOC: WC 08:03
PROVIDERS: Visit Provider Surgery
DX: N61.1 Abscess of the breast and nipple (principal); Z80.3 Family history of malignant neoplasm of breast; M54.6 Pain in thoracic spine; M54.2 Cervicalgia; N62 Hypertrophy of breast; L98.492 Non-pressure chronic ulcer of skin of other sites with fat layer exposed
CPT/HCPCS: 11042

== ENCOUNTER → 2018-01-20 12:22 | Outpatient (CLI) | payer OTHER, SELFPAY ==
--- NOTE | 2018-01-20 12:24 | CT_ITS ---
STUDY: CT CHEST/THORAX WITH CONTRAST REASON FOR EXAM: Female, 52 years old. Follow-up adenopathy. History of breast reduction surgery, hypertension. RADIATION DOSAGE (If Supplied By Facility): CTDIvol = ( 25.02 ) mGy, DLP = ( 734.36 ) mGycm TECHNIQUE: Transaxial imaging was performed following intravenous administration of 100 ml of Isovue 300 contrast material. Multiplanar coronal and sagittal images were reformatted. Individualized dose optimization techniques were used for this CT. COMPARISON: CT chest/thorax September 03, 2017. FINDINGS: 11 mm rounded soft tissue nodule seen in the anteromedial margin of the right middle lobe (series 4 image 63, series 602 image 87). In retrospect, this was present on prior study, and is unchanged. The lungs are otherwise clear. There is no demonstrated pleural abnormality. Normal heart and pericardium. 2.2 x 1.3 x 1.2 cm precarinal lymph node (series 2 image 45, series 602 image 149) is unchanged. 1.85 x 1.2 x 1.35 cm right hilar soft tissue fullness (series 2 image 49, series 6 and image 150) is likely also a stable borderline enlarged lymph node. There is a 1.55 x 1.2 x 0.95 cm right subcarinal lymph node that is also unchanged. No new adenopathy. Normal enhanced pulmonary arteries. Normal aorta arch and descending thoracic aorta. There are stable multi-level spondylotic degenerative changes of the thoracic spine. There is cutaneous thickening of the anterior left breast as well as ill-defined density in the underlying tissue consistent with changes of prior breast reduction surgery. This is seen to a lesser degree on the right, and on both sides, some of this ill-defined soft tissue stranding outlines focal areas of fatty parenchyma. An example is a 2.7 x 1.75 x 1.45 cm site in the medial aspect of the left breast on series 2 image 42, series 6 and image 75. There are nonspecific and fatty replaced lymph nodes in the axillae. There is no demonstrated abnormality of the visualized upper abdomen. CT/Chest WITH Contrast IMPRESSION: 1. Stable 11 mm soft tissue nodule in the anteromedial margin of the right middle lobe. 2. Stable borderline enlarged mediastinal and right hilar lymph nodes, as described. No new adenopathy. 3. Soft tissue changes in the bilateral breasts consistent with the history of prior breast reduction surgery, as noted. Electronically Signed: Beto Olvera MD at 15:55 EDT , Service support ,
[2018-01-20 12:41] LABS: CREATININE FINGERSTICK 0.7 mg/dL (0.55-1.02); EGFR FINGERSTICK > 60.0000 mL/min (>60)
--- NOTE | 2018-01-23 23:54 | PCM.PN.BLA ---
Progress Note Called the patient to discuss the results of the CT report. It showed a stable 11 mm soft tissue nodule in the anteromedial margin of the right middle lobe. Stable borderline enlarged mediastinal and right hilar lymph nodes, as described. No new adenopathy. Soft tissue changes in the bilateral breasts consistent with the history of prior breast reduction surgery, as noted. Recommended to the patient to be evaluated by a [employer].
== END ==
PROVIDERS: Referring Provider Surgery; Visit Provider Surgery
DX: R59.0 Localized enlarged lymph nodes (principal)
CPT/HCPCS: 71260; Q9967

== ENCOUNTER → 2018-10-07 15:21 | Outpatient (CLI) | payer OTHER, SELFPAY ==
--- NOTE | 2018-10-07 15:35 | CT_ITS ---
STUDY: CT CHEST WITH CONTRAST REASON FOR EXAM: Female, 53 years old. Mediastinal adenopathy RADIATION DOSAGE (If Supplied By Facility): CTDIvol = ( 18.38 ) mGy, DLP = ( 702.40 ) mGycm TECHNIQUE: Transaxial imaging was performed following intravenous administration of 100ml IV Isovue 300. Individualized dose optimization techniques were used for this CT. COMPARISON: None. FINDINGS: There is a pleural-based 9 mm nodule of the right middle lobe. There is a pleural-based 3 mm nodule of the right upper lobe image 49 series 4. There is no demonstrated pleural abnormality. Normal heart and pericardium. There is a low-attenuation mass or node on the right adjacent to the anterior mediastinal reflection measuring 10 mm. There are mediastinal nodes, the largest located in the precarinal region measuring 1.2 x 1.8 cm. Normal hilar regions. Normal enhanced pulmonary arteries. Normal aorta arch and descending thoracic aorta. There are multi-level degenerative changes of the thoracic spine. There is no demonstrated abnormality of the visualized upper abdomen. CT/Chest WITH Contrast IMPRESSION: Pleural-based right middle and upper lobe nodules as detailed above. Appropriate follow-up using Fleischner Society criteria is recommended. There is a low-attenuation mass or node on the right adjacent to the anterior mediastinal reflection measuring 10 mm. Mediastinal nodes are present, the largest located in the precarinal region measuring 1.2 x 1.8 cm. Degenerative changes of the thoracic spine. Electronically Signed: Jero Fontenot MD at 17:00 EDT , Service support ,
[2018-10-08 14:57] LABS: CREATININE FINGERSTICK 0.8 mg/dL (0.55-1.02)
== END ==
DX: R59.0 Localized enlarged lymph nodes (principal)
CPT/HCPCS: 71260; Q9967

== ENCOUNTER → 2020-03-10 07:57 | Outpatient (CLI) | payer OTHER, SELFPAY ==
--- NOTE | 2020-03-10 08:03 | CT_ITS ---
STUDY: CT CHEST WITH CONTRAST REASON FOR EXAM: Female, 54 years old. LUNG NODULE F/U, NON SMOKER, DB, HTN, BREAST REDUCTION SURG 2018 RADIATION DOSAGE (If Supplied By Facility): CTDIvol = ( 17.86 ) mGy, DLP = ( 808.15 ) mGycm TECHNIQUE: Transaxial imaging was performed following intravenous administration of IV 100mL Isovue-370. Multiplanar coronal and sagittal images were reformatted. Individualized dose optimization techniques were used for this CT. COMPARISON: Comparison is made with prior study dated 10/07/2018. FINDINGS: 1 cm well-defined noncalcified nodule in the anterior medial aspect of the right middle lobe adjacent to the right cardiac border behind the sternum. This is unchanged. 3 mm pleural-based nodule in the right upper lobe as seen on axial image #49. This is unchanged. There is no demonstrated pleural abnormality. Normal heart and pericardium. There are multiple small lymph nodes within the mediastinum, which are normal in size and morphology most compatible with reactive lymph hyperplasia. Normal hilar regions. Normal enhanced pulmonary arteries. Normal aorta arch and descending thoracic aorta. There are multi-level degenerative changes of the thoracic spine. There is no demonstrated abnormality of the visualized upper abdomen. CT/Chest WITH Contrast IMPRESSION: Stable examination. Electronically Signed: Artem Bahena, at 10:36 EST , Service support ,
[2020-03-11 09:17] LABS: CREATININE FINGERSTICK 0.81 mg/dL (0.55-1.02); EGFR FINGERSTICK > 60 mL/min (>60)
== END ==
DX: R91.1 Solitary pulmonary nodule (principal)
CPT/HCPCS: 71260; Q9967